=== PATIENT | male | born 1960 | race African-American/Black ===

== ENCOUNTER 2017-01-31 03:32 | Inpatient (IN) | payer MEDICARE, OTHER ==
[2017-01-31] VITALS (7 sets, daily range): BP systolic 154–197; BP diastolic 86–115
[~2017-01-31] VITALS: Ht 162.6 cm; Wt 68.1 kg
[2017-01-31 04:23] LABS: BASO # 0.1 x10^3/uL (0.0-0.2); BASO % 1 % (0-3); EOS % 6 % (0-3); HEMATOCRIT 47.3 % (39.0-53.0); HEMOGLOBIN 15.9 g/dL (13.0-17.5); LYMPH # 2.6 x10^3/uL (1.0-4.8); LYMPH % 41 % (24-48); MEAN CORPUSCULAR HEMOGLOBIN 32 pg (25-35); MEAN CORPUSCULAR HGB CONC 34 g/dL (31-37); MEAN CORPUSCULAR VOLUME 96 fL (79-100); MONO % 11 % (0-9); NEUT % 42 % (31-73); PLATELET COUNT 246 x10^3/uL (140-400); RED BLOOD COUNT 4.95 x10^6/uL (4.30-5.70); RED CELL DISTRIBUTION WIDTH 13.3 % (11.5-14.5); WHITE BLOOD COUNT 6.3 x10^3/uL (4.0-11.0)
[2017-01-31 04:33] LABS: PROTHROMBIN TIME PATIENT 12.8 SEC (11.7-14.0)
--- NOTE | 2017-01-31 04:38 | PHYS DOC ---
Past Medical History Past Medical History: CHF, COPD, Heart Disease Additional Past Surgical Histo: Hernia; left and arm surgery Smoking: Cigarettes Adult General Chief Complaint Chief Complaint: DYSPNEA/RESPIRATOY DISTRESS HPI HPI Patient is a 56 year old male who presents with SOA. He states he has had trouble breathing for 3 days. "I was trying to get through it but I wore out tonight." EMS arrived with patient in respiratory distress and sats in the 80' s. He was placed on CIPAP en route with marked improvement. He has had undocumented fever "felt hot." Cough; non productive and chest pain. He does continue to smoke. He twisted his left ankle one week ago and was seen at then. [facility] as [facility] to ambulance).He arrived with oxygenation at 100% on BIPAP with duoneb in process. Review of Systems Review of Systems Patient answering through the mask: Constitutional: subjective fever but no chills Eyes: Denies change in visual acuity, redness, or eye pain HENT: Denies nasal congestion or sore throat Respiratory: POS cough and shortness of breath Cardiovascular:POS chest pain GI: Denies abdominal pain, nausea, vomiting, bloody stools or diarrhea : Denies dysuria or hematuria Musculoskeletal: Denies back pain. POS left lower leg. Integument: Denies rash or skin lesions Neurologic: Denies headache, focal weakness or sensory changes Endocrine: Denies polyuria or polydipsia Allergies Allergies Allergies Coded Allergies Type Severity Reaction Last Updated Verified No Known Drug Allergies 01/31/17 No Physical Exam Physical Exam Constitutional: Well developed, well nourished, no acute distress, non-toxic appearance. Answering questions through the mask. HENT: Normocephalic, atraumatic, bilateral external ears normal, oropharynx moist, no oral exudates, nose normal. Eyes: PERRLA, EOMI, conjunctiva normal, no discharge. Neck: Normal range of motion, no tenderness, supple, no stridor. Cardiovascular:Heart rate regular rhythm, no murmur Lungs & Thorax: Bilateral breath sounds with coarse rhonchi. Abdomen: Bowel sounds normal, soft, no tenderness, no masses, no pulsatile masses. Skin: Warm, dry, no erythema, no rash. Back: No tenderness, no CVA tenderness. Extremities: No tenderness, no cyanosis, no clubbing, ROM intact. Left lower leg with pain and minimal swelling. Neurologic: Alert and oriented X 3, normal motor function, normal sensory function, no focal deficits noted. Psychologic: Affect normal, judgement normal, mood normal. Current Patient Data Vital Signs Vital Signs Date Time Temp Pulse Resp B/P (MAP) Pulse Ox O2 Delivery O2 Flow Rate FiO2 01/31/17 03:35 100 BiPAP/CPAP 01/31/17 03:32 97.8 101 28 148/106 (120) 97.8 Lab Values Laboratory Tests Test 01/31/17 04:00 White Blood Count 6.3 x10^3/uL (4.0-11.0) Red Blood Count 4.95 x10^6/uL (4.30-5.70) Hemoglobin 15.9 g/dL (13.0-17.5) Hematocrit 47.3 % (39.0-53.0) Mean Corpuscular Volume 96 fL (79-100) Mean Corpuscular Hemoglobin 32 pg (25-35) Mean Corpuscular Hemoglobin Concent 34 g/dL (31-37) Red Cell Distribution Width 13.3 % (11.5-14.5) Platelet Count 246 x10^3/uL (140-400) Neutrophils (%) (Auto) 42 % (31-73) Lymphocytes (%) (Auto) 41 % (24-48) Monocytes (%) (Auto) 11 % (0-9) H Eosinophils (%) (Auto) 6 % (0-3) H Basophils (%) (Auto) 1 % (0-3) Neutrophils # (Auto) 2.6 x10^3uL (1.8-7.7) Lymphocytes # (Auto) 2.6 x10^3/uL (1.0-4.8) Monocytes # (Auto) 0.7 x10^3/uL (0.0-1.1) Eosinophils # (Auto) 0.4 x10^3/uL (0.0-0.7) Basophils # (Auto) 0.1 x10^3/uL (0.0-0.2) Prothrombin Time 12.8 SEC (11.7-14.0) Prothrombin Time INR 1.0 (0.8-1.1) Sodium Level 141 mmol/L (136-145) Potassium Level 3.6 mmol/L (3.5-5.1) Chloride Level 105 mmol/L (98-107) Carbon Dioxide Level 26 mmol/L (21-32) Anion Gap 10 (6-14) Blood Urea Nitrogen 10 mg/dL (8-26) Creatinine 0.9 mg/dL (0.7-1.3) Estimated GFR (Cockcroft-Gault) 104.9 Glucose Level 124 mg/dL (70-99) H Lactic Acid Level 1.2 mmol/L (0.4-2.0) Calcium Level 9.3 mg/dL (8.5-10.1) Magnesium Level 1.7 mg/dL (1.8-2.4) L Total Bilirubin 0.9 mg/dL (0.2-1.0) Direct Bilirubin 0.2 mg/dL (0.0-0.2) Aspartate Amino Transferase (AST) 23 U/L (15-37) Alanine Aminotransferase (ALT) 27 U/L (16-63) Alkaline Phosphatase 79 U/L (46-116) Creatine Kinase 225 U/L (39-308) Creatine Kinase MB (Mass) 1.0 ng/mL (0.0-3.6) Creatine Kinase MB Relative Index 0.4 % (0-4) Troponin I Quantitative < 0.017 ng/mL (0.000-0.055) AL-Fvx-J-Type Natriuretic Peptide 21 pg/mL (0-124) Total Protein 7.8 g/dL (6.4-8.2) Albumin 3.7 g/dL (3.4-5.0) Lipase 150 U/L (73-393) Laboratory Tests 01/31/17 04:00 Laboratory Tests 01/31/17 04:00 EKG EKG EKG interpreted by myself at [address] changes; NO STEMI. Radiology/Procedures Radiology/Procedures CXR interpreted by myself at 0505 AM: flattened diaphragms; no acute infiltrate ; no pneumothorax. US: verbal report at 0510 AM: no DVT Impressions: [facility] [address] [place] [address] IMAGING REPORT Signed PATIENT: MARYANNE WINTER ACCOUNT: [id number] : 1960 LOCATION: [facility] ICU AGE: 56 SEX: M EXAM STATUS: ADM IN ORD. PHYSICIAN: EDER AUSTIN MD REASON: swelling left lower leg PROCEDURE: VENOUS LOWER EXTREMITY LEFT INDICATION: Left leg swelling COMPARISON: None. TECHNIQUE: Grayscale, color and doppler ultrasound images were obtained of the left lower extremity venous vasculature. LEFT: No thrombus identified in the common femoral vein, femoral vein, popliteal vein or visualized calf veins. IMPRESSION: 1. No thrombus identified in deep venous system of the left lower extremity. Electronically signed by: Josiane Hinojosa MD (01/31/2017 5:22 AM) [facility] [place] DICTATED and SIGNED BY: JOSIANE HINOJOSA MD DATE: 01/31/17520 CC: EDER AUSTIN MD; NO PCP; ADI BUSTAMANTE MD ~ Course & Med Decision Making Course & Med Decision Making Met patient upon arrival. No records here. History of CHF and COPD. No rales on exam. Doing well on BIPAP. Patient refuses ABG at this time; he is mentating well and sat 100%. He is on BIPAP: 16/6; rate 16; 30%. He is able to answer questions thru the mask. Solumedrol 125 IV and Rocephin IV (for pulmonary coverage). US ordered of left lower leg due to immobility for one week for sprain. Admit to Dr Bustamante; CVC (patient is hemodynamically stable and mentating well). Differential diagnosis includes but not limited to: Acute myocardial ischemia, heart failure, cardiac tamponade, bronchospasm, pulmonary embolism, pneumothorax , pulmonary infection i.e. bronchitis or pneumonia, upper airway obstruction, anaphylaxis, aspiration, psychogenic, pulmonary contusion, toxidrome, pneumomediastinum, noncardiogenic pulmonary edema or ARDS, COPD, tuberculosis, cystic fibrosis, asthma, high altitude pulmonary edema, valvular dysfunction, cardiac dysrhythmia, stroke, neuromuscular diseases like myasthenia gravis gravis, ALS, Guillain-Sweeney syndrome, metabolic acidosis to include diabetic ketoacidosis, sepsis, and obstructive disorders like massive obesity I have spoken with the patient and/or caregivers. I have explained the patient' s condition, diagnosis and treatment plan based on the information available to me at this time. I have answered the patient's and/or caregiver's questions and addressed any concerns. The patient and/or caregivers have as good an understanding of the patient's diagnosis, condition and treatment plan as can be expected at this point. The patient has been stabilized within the capability of the emergency department. The patient will be transported for further care and management or will be moved to an observation or inpatient service. I have communicated with the staff or medical practitioner taking over this patient's care. I spent approximately 30 minutes working and engaged directly in the patient care providing critical care evaluation this includes but not limited to time spent engaged in work directly related to the individual patients care. I spent time at the bedside, reviewing test results, discussing the case with staff, documenting the medical record and time spent with EMS discussing specific treatment issues when the patient presented and during his evaluation. This includes any discussion and updates with family members and/or patient. Dragon Disclaimer Dragon Disclaimer This electronic medical record was generated, in whole or in part, using a voice recognition dictation system. Departure Departure Impression: Primary Impression: Respiratory failure Additional Impressions: COPD (chronic obstructive pulmonary disease) with acute bronchitis Chest pain Disposition: ADMITTED INPATIENT Admitting Physician: Other (Reusch) Condition: GUARDED Referrals: NO PCP (PCP) Problem Qualifiers Primary Impression: Respiratory failure Chronicity: acute Respiratory failure complication: unspecified whether with hypoxia or hypercapnia Qualified Codes: J96.00 - Acute respiratory failure, unspecified whether with hypoxia or hypercapnia Additional Impressions: Chest pain Chest pain type: unspecified Qualified Codes: R07.9 - Chest pain, unspecified EDER AUSTIN MD Jan 31, 2017 04:38
[2017-01-31 04:44] LABS: CALCIUM 9.3 mg/dL (8.5-10.1); CREATININE 0.9 mg/dL (0.7-1.3); GFR 104.9; POTASSIUM 3.6 mmol/L (3.5-5.1)
[2017-01-31] MEDS ORDERED: methylPREDNISolone SOD SUCC PF 125 MG/2 ML VIAL. IV ONE (04:45)
[2017-01-31 04:48] LABS: ALBUMIN 3.7 g/dL (3.4-5.0); DIRECT BILIRUBIN 0.2 mg/dL (0.0-0.2); MAGNESIUM 1.7 mg/dL (1.8-2.4); TOTAL BILIRUBIN 0.9 mg/dL (0.2-1.0); TOTAL PROTEIN 7.8 g/dL (6.4-8.2)
[2017-01-31] MEDS ORDERED: ONDANSETRON PF 4 MG/2 ML VIAL. IV PRN ×2 (05:00→10:00)
--- NOTE | 2017-01-31 05:26 | RAD ---
INDICATION: Left leg swelling COMPARISON: None. TECHNIQUE: Grayscale, color and doppler ultrasound images were obtained of the left lower extremity venous vasculature. LEFT: No thrombus identified in the common femoral vein, femoral vein, popliteal vein or visualized calf veins. IMPRESSION: 1. No thrombus identified in deep venous system of the left lower extremity. Electronically signed by: Sloan Norwood MD (01/31/2017 5:22 AM) [facility]
[2017-01-31] MEDS ORDERED: INFLUENZA VAX SCREEN BY RX. MC ONE (06:30)
--- NOTE | 2017-01-31 07:05 | EKG ---
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
[2017-01-31] MEDS: IPRATRPIUM/ALBUTEROL 0.5/2.5MG 3 ML NEBU. NEB SCH ×4 (07:26→19:38)
[2017-01-31 08:19] LABS: HCO3 ABG 26 mmol/L (21-28); PCO2 ABG 46 mmHg (35-46); PH ABG 7.36 (7.35-7.45); PO2 ABG 95 mmHg (75-108); SAT O2 ABG 97 % (92-99)
[2017-01-31 08:20] LABS: FIO2 ABG 30
[2017-01-31] MEDS: BUDESONIDE 0.5 MG/2 ML NEBU. NEB SCH ×2 (08:22→19:38)
[2017-01-31] MEDS ORDERED: FLU VACC QS2017-18 (36MOS+)/PF 0.5 ML SYRINGE. VAX IM ONE (09:00)
[2017-01-31] MEDS ORDERED: guaiFENesin DM 200MG/20MG 10 ML SYRUP PO PRN (10:00)
[2017-01-31] MEDS ORDERED: NICOTINE POLACRILEX 2MG GUM PACKAGE of 12. BC PRN (11:00)
[2017-01-31] MEDS ORDERED: NICOTINE 21MG PATCH. TD SCH (11:00)
--- NOTE | 2017-01-31 11:02 | PDOC1 ---
History and Physical Date of Admission Date of Admission DATE: 01/31/17 TIME: 10:55 Identification/Chief Complaint Chief Complaint SOA, cough Problems: Source Source: Caregiver, Chart review, Patient History of Present Illness History of Present Illness 56 y.o AA male follows at OR, half a pack a day smoker for many yrs, still smoking, admitted with low sats at ER needing BIPAP, had similar hx in [facility] needing also bIPAP. Refused ABG at ER level, CXR no acute inflitrates, tight, wheezy but feels better, on IV steroids. Coughs, dry in attempts of inhalation during my auscultation, Denies recent travel or sick contacts, but RAN out of his inhalers x 5 days, Usually on spiriva, symbicort and advair at home, Insurance pays for his meds so cost not an issue, Claims has appt this OR. heAVY COUNSELLING ABout keeping with his meds to avoid exacerbations. CLaims SOA at short distances - never on O2. No known Cardiac hx Past Medical History Pulmonary: Bronchitis, COPD Past Surgical History Past Surgical History: No pertinent history Family History Family History: No Significant Social History Smoke: <1 pack per day ALCOHOL: none Drugs: None Current Problem List Problem List Problems Medical Problems: (1) Chest pain Status: Acute (2) COPD (chronic obstructive pulmonary disease) with acute bronchitis Status: Acute (3) Respiratory failure Status: Acute Problems: Current Medications Current Medications Current Medications Methylprednisolone Sodium Succinate (SOLU-Medrol 125MG VIAL) 125 mg 1X ONCE IV Last administered on 01/31/17 05:20; Start 01/31/17 at 04:45; Stop 01/31/17 at 04:46; Status DC Ceftriaxone Sodium 50 ml @ 100 mls/hr 1X ONCE IV Last administered on 05:22; Start 01/31/17 at 04:45; Stop 01/31/17 at 05:14; Status DC Ondansetron HCl (Zofran) 4 mg PRN Q8HRS PRN IV NAUSEA/VOMITING; Start 01/31/17 at 05:00; Stop 01/31/17 at 09:54; Status DC Albuterol/ Ipratropium (Duoneb) 3 ml RTQID NEB Last administered on 01/31/17 07:26; Start 01/31/17 at 08:00; Stop 02/01/17 at 07:59 Ceftriaxone Sodium 1 gm/ Sodium Chloride 50 ml @ 100 mls/hr Q24H IV ; Start at 05:00 Methylprednisolone Sodium Succinate (SOLU-Medrol 40MG VIAL) 40 mg Q8HRS IV ; Start 01/31/17 at 14:00 Info (Do NOT chart on this placeholder) 1 each 1X ONCE MC ; Start 01/31/17 at 06:30; Stop 01/31/17 at 06:31; Status UNV Influenza Virus Vaccine Quadrival (Fluarix Quad [id number] Syringe) 0.5 ml ONCE ONCE VAX IM ; Start 01/31/17 at 09:00; Stop 01/31/17 at 09:01; Status DC Budesonide (Pulmicort) 0.5 mg RTBID NEB Last administered on 01/31/17t 08:22; Start 01/31/17 at 08:00 Ondansetron HCl (Zofran) 4 mg PRN Q6HRS PRN IV NAUSEA/VOMITING; Start 01/31/17 at 10:00; Stop 02/01/17 at 09:59 Acetaminophen (Tylenol) 500 mg PRN Q6HRS PRN PO MILD PAIN / TEMP; Start at 10:00 Clonidine HCl (Catapres) 0.1 mg PRN Q1HR PRN PO HYPERTENSION, SEE COMMENTS; Start 01/31/17 at 10:00 Guaifenesin (Robitussin Dm) 10 ml PRN Q6HRS PRN PO COUGH; Start 01/31/17 at 10: 00 Allergies Allergies: Coded Allergies: No Known Drug Allergies (Unverified , 01/31/17) ROS General: No: Chills, Night Sweats, Fatigue, Malaise, Appetite, Other PSYCHOLOGICAL ROS: No: Anxiety, Behavioral Disorder, Concentration difficultie , Decreased libido, Depression, Disorientation, Hallucinations, Hostility, Irritablity, Memory difficulties, Mood Swings, Obsessive thoughts, Physical abuse, Sexual abuse, Sleep disturbances, Suicidal ideation, Other Eyes: No Blurry vision, No Decreased vision, No Double vision, No Dry eyes, No Excessive tearing, No Eye Pain, No Itchy Eyes, No Loss of vision, No Photophobia , No Scotomata, No Uses contacts, No Uses glasses, No Other HEENT: No: Heacaches, Visual Changes, Hearing change, Nasal congestion, Nasal discharge, Oral lesions, Sinus pain, Sore Throat, Epistaxis, Sneezing, Snoring, Tinnitus, Vertigo, Vocal changes, Other ALLERGY AND IMMUNOLOGY: No: Hives, Insect Bite Sensitivity, Itchy/Watery Eyes, Nasal Congestion, Post Nasal Drip, Seasonal Allergies, Other Hematological and Lymphatic: No: Bleeding Problems, Blood Clots, Blood Transfusions, Brusing, Night Sweats, Pallor, Swollen Lymph Nodes, Other ENDOCRINE: No: Breast Changes, Galactorrhea, Hair Pattern Changes, Hot Flashes , Malaise/lethargy, Mood Swings, Palpitations, Polydipsia/polyuria, Skin Changes , Temperature Intolerance, Unexpected Weight Changes, Other Breast: No New/Changing Breast Lumps, No Nipple changes, No Nipple discharge, No Other Respiratory: YES: Cough, Shortness of breath, SOB with excertion Gastrointestinal: No Nausea, No Vomiting, No Abdominal Pain, No Diarrhea, No Constipation, No Melena, No Hematochezia, No Other Genitourinary: No Dysuria, No Frequency, No Incontinence, No Hematuria, No Retention, No Discharge, No Urgency, No Pain, No Flank Pain, No Other, No , No , No , No , No , No , No Musculoskeletal: No Gait Disturbance, No Joint Pain, No Joint Stiffness, No Joint Swelling, No Muscle Pain, No Muscular Weakness, No Pain In:, No Swelling In:, No Other Neurological: No Behavorial Changes, No Bowel/Bladder ControlChng, No Confusion , No Dizziness, No Gait Disturbance, No Headaches, No Impaired Coord/balance, No Memory Loss, No Numbness/Tingling, No Seizures, No Speech Problems, No Tremors, No Visual Changes, No Weakness, No Other Skin: No Dry Skin, No Eczema, No Hair Changes, No Lumps, No Mole Changes, No Mottling, No Nail Changes, No Pruritus, No Rash, No Skin Lesion Changes, No Other, No Acne Physical Exam General: Alert, Oriented X3, Cooperative, No acute distress HEENT: Atraumatic, PERRLA Lungs: Normal air movement, Other (tight, dec BS, wheezy) Cardiovascular: S1, S2 Abdomen: Normal bowel sounds, Soft, No tenderness, No hepatosplenomegaly, No masses Male Genitals Exam: normal genitalia, normal prostate Rectal Exam: not examined PELVIC: Nml ext genitalia Extremities: No clubbing, No cyanosis, No edema, Normal pulses, No tenderness/ swelling Skin: No rashes, No breakdown, No significant lesion Neuro: Normal gait, Normal speech, Strength at 5/5 X4 ext, Normal tone, Sensation intact, Cranial nerves 3-12 NL, Reflexes 2+ Psych/Mental Status: Mental status NL, Mood NL Vitals Vitals Vital Signs Date Time Temp Pulse Resp B/P (MAP) Pulse Ox O2 Delivery O2 Flow Rate FiO2 01/31/17 07:58 30.0 01/31/17 07:58 Room Air 01/31/17 07:26 99 01/31/17 07:15 84 16 154/95 (114) 01/31/17 06:00 97.5 97.5 Labs Labs Laboratory Tests Test 01/31/17 04:00 01/31/17 07:15 01/31/17 07:40 01/31/17 07:46 White Blood Count 6.3 x10^3/uL (4.0-11.0) Red Blood Count 4.95 x10^6/uL (4.30-5.70) Hemoglobin 15.9 g/dL (13.0-17.5) Hematocrit 47.3 % (39.0-53.0) Mean Corpuscular Volume 96 fL (79-100) Mean Corpuscular Hemoglobin 32 pg (25-35) Mean Corpuscular Hemoglobin Concent 34 g/dL (31-37) Red Cell Distribution Width 13.3 % (11.5-14.5) Platelet Count 246 x10^3/uL (140-400) Neutrophils (%) (Auto) 42 % (31-73) Lymphocytes (%) (Auto) 41 % (24-48) Monocytes (%) (Auto) 11 % (0-9) Eosinophils (%) (Auto) 6 % (0-3) Basophils (%) (Auto) 1 % (0-3) Neutrophils # (Auto) 2.6 x10^3uL (1.8-7.7) Lymphocytes # (Auto) 2.6 x10^3/uL (1.0-4.8) Monocytes # (Auto) 0.7 x10^3/uL (0.0-1.1) Eosinophils # (Auto) 0.4 x10^3/uL (0.0-0.7) Basophils # (Auto) 0.1 x10^3/uL (0.0-0.2) Prothrombin Time 12.8 SEC (11.7-14.0) Prothromb Time International Ratio 1.0 (0.8-1.1) Sodium Level 141 mmol/L (136-145) Potassium Level 3.6 mmol/L (3.5-5.1) Chloride Level 105 mmol/L (98-107) Carbon Dioxide Level 26 mmol/L (21-32) Anion Gap 10 (6-14) Blood Urea Nitrogen 10 mg/dL (8-26) Creatinine 0.9 mg/dL (0.7-1.3) Estimated GFR (Cockcroft-Gault) 104.9 Glucose Level 124 mg/dL (70-99) Lactic Acid Level 1.2 mmol/L (0.4-2.0) Calcium Level 9.3 mg/dL (8.5-10.1) Magnesium Level 1.7 mg/dL (1.8-2.4) Total Bilirubin 0.9 mg/dL (0.2-1.0) Direct Bilirubin 0.2 mg/dL (0.0-0.2) Aspartate Amino Transf (AST/SGOT) 23 U/L (15-37) Alanine Aminotransferase (ALT/SGPT) 27 U/L (16-63) Alkaline Phosphatase 79 U/L (46-116) Creatine Kinase 225 U/L (39-308) Creatine Kinase MB (Mass) 1.0 ng/mL (0.0-3.6) Creatine Kinase MB Relative Index 0.4 % (0-4) Troponin I Quantitative < 0.017 ng/mL (0.000-0.055) < 0.017 ng/mL (0.000-0.055) KU-Bxc-B-Type Natriuretic Peptide 21 pg/mL (0-124) Total Protein 7.8 g/dL (6.4-8.2) Albumin 3.7 g/dL (3.4-5.0) Lipase 150 U/L (73-393) O2 Saturation 97 % (92-99) Arterial Blood pH 7.36 (7.35-7.45) Arterial Blood pCO2 at Patient Temp 46 mmHg (35-46) Arterial Blood pO2 at Patient Temp 95 mmHg (75-108) Arterial Blood HCO3 26 mmol/L (21-28) Arterial Blood Base Excess -1 mmol/L (-3-3) FiO2 30 Glucose (Fingerstick) 125 mg/dL (70-99) Laboratory Tests Test 01/31/17 04:00 01/31/17 07:15 01/31/17 07:40 01/31/17 07:46 White Blood Count 6.3 x10^3/uL (4.0-11.0) Red Blood Count 4.95 x10^6/uL (4.30-5.70) Hemoglobin 15.9 g/dL (13.0-17.5) Hematocrit 47.3 % (39.0-53.0) Mean Corpuscular Volume 96 fL (79-100) Mean Corpuscular Hemoglobin 32 pg (25-35) Mean Corpuscular Hemoglobin Concent 34 g/dL (31-37) Red Cell Distribution Width 13.3 % (11.5-14.5) Platelet Count 246 x10^3/uL (140-400) Neutrophils (%) (Auto) 42 % (31-73) Lymphocytes (%) (Auto) 41 % (24-48) Monocytes (%) (Auto) 11 % (0-9) Eosinophils (%) (Auto) 6 % (0-3) Basophils (%) (Auto) 1 % (0-3) Neutrophils # (Auto) 2.6 x10^3uL (1.8-7.7) Lymphocytes # (Auto) 2.6 x10^3/uL (1.0-4.8) Monocytes # (Auto) 0.7 x10^3/uL (0.0-1.1) Eosinophils # (Auto) 0.4 x10^3/uL (0.0-0.7) Basophils # (Auto) 0.1 x10^3/uL (0.0-0.2) Prothrombin Time 12.8 SEC (11.7-14.0) Prothromb Time International Ratio 1.0 (0.8-1.1) Sodium Level 141 mmol/L (136-145) Potassium Level 3.6 mmol/L (3.5-5.1) Chloride Level 105 mmol/L (98-107) Carbon Dioxide Level 26 mmol/L (21-32) Anion Gap 10 (6-14) Blood Urea Nitrogen 10 mg/dL (8-26) Creatinine 0.9 mg/dL (0.7-1.3) Estimated GFR (Cockcroft-Gault) 104.9 Glucose Level 124 mg/dL (70-99) Lactic Acid Level 1.2 mmol/L (0.4-2.0) Calcium Level 9.3 mg/dL (8.5-10.1) Magnesium Level 1.7 mg/dL (1.8-2.4) Total Bilirubin 0.9 mg/dL (0.2-1.0) Direct Bilirubin 0.2 mg/dL (0.0-0.2) Aspartate Amino Transf (AST/SGOT) 23 U/L (15-37) Alanine Aminotransferase (ALT/SGPT) 27 U/L (16-63) Alkaline Phosphatase 79 U/L (46-116) Creatine Kinase 225 U/L (39-308) Creatine Kinase MB (Mass) 1.0 ng/mL (0.0-3.6) Creatine Kinase MB Relative Index 0.4 % (0-4) Troponin I Quantitative < 0.017 ng/mL (0.000-0.055) < 0.017 ng/mL (0.000-0.055) AJ-Ndj-C-Type Natriuretic Peptide 21 pg/mL (0-124) Total Protein 7.8 g/dL (6.4-8.2) Albumin 3.7 g/dL (3.4-5.0) Lipase 150 U/L (73-393) O2 Saturation 97 % (92-99) Arterial Blood pH 7.36 (7.35-7.45) Arterial Blood pCO2 at Patient Temp 46 mmHg (35-46) Arterial Blood pO2 at Patient Temp 95 mmHg (75-108) Arterial Blood HCO3 26 mmol/L (21-28) Arterial Blood Base Excess -1 mmol/L (-3-3) FiO2 30 Glucose (Fingerstick) 125 mg/dL (70-99) VTE Prophylaxis Ordered VTE Prophylaxis Devices: Yes VTE Pharmacological Prophylaxi: Yes Assessment/Plan Assessment/Plan 1. Acute hypoxic respi failure, COPD exacerb, acute bronchitis - no definite PNA seen on CXR - started on empiric rocpehin - Add RTC maryitussin, nebs, 2. SMOker, significant -nicotine gum and patch 3. SIRS POA no sepsis PLAN: OK to t.o ICU Nebs PUlmo consult COnt empiric abx COnt IV steroids - might be able to shift PO soon 6 MW Likely dc in 48 hrs Ok reg diet Dw GOVERNMENT INSTRUCTOR TAURUS Ashford MD Jan 31, 2017 11:02
[2017-01-31] MEDS: guaiFENesin DM 200MG/20MG 10 ML SYRUP PO SCH ×3 (11:45→20:31)
[2017-01-31] MEDS: LABETALOL 20 MG/4 ML DISP.SYRIN. IVP PRN ×3 (11:45→23:11)
--- NOTE | 2017-01-31 12:05 | PDOC ---
PULMONARY PROGRESS NOTES Vitals Vital Signs Date Time Temp Pulse Resp B/P (MAP) Pulse Ox O2 Delivery O2 Flow Rate FiO2 01/31/17 11:49 30.0 01/31/17 11:45 122 168/115 01/31/17 11:25 100 Room Air 01/31/17 11:25 35 01/31/17 06:00 97.5 97.5 Cardiovascular: S1, S2 Labs Laboratory Tests Test 01/31/17 04:00 01/31/17 07:15 01/31/17 07:40 01/31/17 07:46 White Blood Count 6.3 x10^3/uL (4.0-11.0) Red Blood Count 4.95 x10^6/uL (4.30-5.70) Hemoglobin 15.9 g/dL (13.0-17.5) Hematocrit 47.3 % (39.0-53.0) Mean Corpuscular Volume 96 fL (79-100) Mean Corpuscular Hemoglobin 32 pg (25-35) Mean Corpuscular Hemoglobin Concent 34 g/dL (31-37) Red Cell Distribution Width 13.3 % (11.5-14.5) Platelet Count 246 x10^3/uL (140-400) Neutrophils (%) (Auto) 42 % (31-73) Lymphocytes (%) (Auto) 41 % (24-48) Monocytes (%) (Auto) 11 % (0-9) Eosinophils (%) (Auto) 6 % (0-3) Basophils (%) (Auto) 1 % (0-3) Neutrophils # (Auto) 2.6 x10^3uL (1.8-7.7) Lymphocytes # (Auto) 2.6 x10^3/uL (1.0-4.8) Monocytes # (Auto) 0.7 x10^3/uL (0.0-1.1) Eosinophils # (Auto) 0.4 x10^3/uL (0.0-0.7) Basophils # (Auto) 0.1 x10^3/uL (0.0-0.2) Prothrombin Time 12.8 SEC (11.7-14.0) Prothromb Time International Ratio 1.0 (0.8-1.1) Sodium Level 141 mmol/L (136-145) Potassium Level 3.6 mmol/L (3.5-5.1) Chloride Level 105 mmol/L (98-107) Carbon Dioxide Level 26 mmol/L (21-32) Anion Gap 10 (6-14) Blood Urea Nitrogen 10 mg/dL (8-26) Creatinine 0.9 mg/dL (0.7-1.3) Estimated GFR (Cockcroft-Gault) 104.9 Glucose Level 124 mg/dL (70-99) Lactic Acid Level 1.2 mmol/L (0.4-2.0) Calcium Level 9.3 mg/dL (8.5-10.1) Magnesium Level 1.7 mg/dL (1.8-2.4) Total Bilirubin 0.9 mg/dL (0.2-1.0) Direct Bilirubin 0.2 mg/dL (0.0-0.2) Aspartate Amino Transf (AST/SGOT) 23 U/L (15-37) Alanine Aminotransferase (ALT/SGPT) 27 U/L (16-63) Alkaline Phosphatase 79 U/L (46-116) Creatine Kinase 225 U/L (39-308) Creatine Kinase MB (Mass) 1.0 ng/mL (0.0-3.6) Creatine Kinase MB Relative Index 0.4 % (0-4) Troponin I Quantitative < 0.017 ng/mL (0.000-0.055) < 0.017 ng/mL (0.000-0.055) JT-Cdc-F-Type Natriuretic Peptide 21 pg/mL (0-124) Total Protein 7.8 g/dL (6.4-8.2) Albumin 3.7 g/dL (3.4-5.0) Lipase 150 U/L (73-393) O2 Saturation 97 % (92-99) Arterial Blood pH 7.36 (7.35-7.45) Arterial Blood pCO2 at Patient Temp 46 mmHg (35-46) Arterial Blood pO2 at Patient Temp 95 mmHg (75-108) Arterial Blood HCO3 26 mmol/L (21-28) Arterial Blood Base Excess -1 mmol/L (-3-3) FiO2 30 Glucose (Fingerstick) 125 mg/dL (70-99) Test 01/31/17 10:20 Troponin I Quantitative < 0.017 ng/mL (0.000-0.055) Laboratory Tests Test 01/31/17 04:00 01/31/17 07:15 01/31/17 07:40 01/31/17 07:46 White Blood Count 6.3 x10^3/uL (4.0-11.0) Red Blood Count 4.95 x10^6/uL (4.30-5.70) Hemoglobin 15.9 g/dL (13.0-17.5) Hematocrit 47.3 % (39.0-53.0) Mean Corpuscular Volume 96 fL (79-100) Mean Corpuscular Hemoglobin 32 pg (25-35) Mean Corpuscular Hemoglobin Concent 34 g/dL (31-37) Red Cell Distribution Width 13.3 % (11.5-14.5) Platelet Count 246 x10^3/uL (140-400) Neutrophils (%) (Auto) 42 % (31-73) Lymphocytes (%) (Auto) 41 % (24-48) Monocytes (%) (Auto) 11 % (0-9) Eosinophils (%) (Auto) 6 % (0-3) Basophils (%) (Auto) 1 % (0-3) Neutrophils # (Auto) 2.6 x10^3uL (1.8-7.7) Lymphocytes # (Auto) 2.6 x10^3/uL (1.0-4.8) Monocytes # (Auto) 0.7 x10^3/uL (0.0-1.1) Eosinophils # (Auto) 0.4 x10^3/uL (0.0-0.7) Basophils # (Auto) 0.1 x10^3/uL (0.0-0.2) Prothrombin Time 12.8 SEC (11.7-14.0) Prothromb Time International Ratio 1.0 (0.8-1.1) Sodium Level 141 mmol/L (136-145) Potassium Level 3.6 mmol/L (3.5-5.1) Chloride Level 105 mmol/L (98-107) Carbon Dioxide Level 26 mmol/L (21-32) Anion Gap 10 (6-14) Blood Urea Nitrogen 10 mg/dL (8-26) Creatinine 0.9 mg/dL (0.7-1.3) Estimated GFR (Cockcroft-Gault) 104.9 Glucose Level 124 mg/dL (70-99) Lactic Acid Level 1.2 mmol/L (0.4-2.0) Calcium Level 9.3 mg/dL (8.5-10.1) Magnesium Level 1.7 mg/dL (1.8-2.4) Total Bilirubin 0.9 mg/dL (0.2-1.0) Direct Bilirubin 0.2 mg/dL (0.0-0.2) Aspartate Amino Transf (AST/SGOT) 23 U/L (15-37) Alanine Aminotransferase (ALT/SGPT) 27 U/L (16-63) Alkaline Phosphatase 79 U/L (46-116) Creatine Kinase 225 U/L (39-308) Creatine Kinase MB (Mass) 1.0 ng/mL (0.0-3.6) Creatine Kinase MB Relative Index 0.4 % (0-4) Troponin I Quantitative < 0.017 ng/mL (0.000-0.055) < 0.017 ng/mL (0.000-0.055) YD-Eeh-Z-Type Natriuretic Peptide 21 pg/mL (0-124) Total Protein 7.8 g/dL (6.4-8.2) Albumin 3.7 g/dL (3.4-5.0) Lipase 150 U/L (73-393) O2 Saturation 97 % (92-99) Arterial Blood pH 7.36 (7.35-7.45) Arterial Blood pCO2 at Patient Temp 46 mmHg (35-46) Arterial Blood pO2 at Patient Temp 95 mmHg (75-108) Arterial Blood HCO3 26 mmol/L (21-28) Arterial Blood Base Excess -1 mmol/L (-3-3) FiO2 30 Glucose (Fingerstick) 125 mg/dL (70-99) Test 01/31/17 10:20 Troponin I Quantitative < 0.017 ng/mL (0.000-0.055) Impression . full consult dictated AECOPD resp Failure sec to above see orders Thanks WILLIAM LIVE MD Jan 31, 2017 12:05
[2017-01-31] MEDS: DOXYCYCLINE HYCLATE 100 MG TABLET PO SCH ×2 (12:37→20:30)
[2017-01-31] MEDS: methylPREDNISolone SOD SUCC PF 40 MG/ML VIAL. IV SCH ×2 (14:01→21:41)
[2017-01-31] MEDS: ACETAMINOPHEN 500 MG TABLET PO PRN ×2 (16:14→20:30)
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
[2017-01-31] MEDS ORDERED: IBUPROFEN 600 MG TABLET. PO PRN (21:30)
[2017-01-31] MEDS: cloNIDine HCL 0.1 MG TABLET PO PRN (23:11)
[2017-02-01 00:50] VITALS: BP 176/102
[2017-02-01] MEDS: LABETALOL 20 MG/4 ML DISP.SYRIN. IVP PRN (01:19)
[2017-02-01 02:53] VITALS: BP 154/87
[2017-02-01] MEDS: cloNIDine HCL 0.1 MG TABLET PO PRN (02:53)
[2017-02-01] MEDS: ACETAMINOPHEN 500 MG TABLET PO PRN (02:53)
[2017-02-01] MEDS: BUDESONIDE 0.5 MG/2 ML NEBU. NEB SCH (07:42)
[2017-02-01 08:00] VITALS: BP 154/90
[2017-02-01] MEDS ORDERED: predniSONE 20 MG TABLET PO SCH (09:00)
[2017-02-01] MEDS ORDERED: BUDE10.2 IH (09:03)
[2017-02-01] MEDS ORDERED: TIOT18CA IH (09:03)
[2017-02-01] MEDS ORDERED: PRED20TA PO (09:03)
[2017-02-01] MEDS ORDERED: DOXY100C2 PO (09:03)
--- NOTE | 2017-02-01 09:06 | PDOC3 ---
Discharge Summary Visit Information Date of Admission: Jan 31, 2017 Date of Discharge: Feb 01, 2017 Admitting Diagnosis Comment: 1. Acute hypoxic respi failure, COPD exacerb, acute bronchitis - no definite PNA seen on CXR - started on empiric rocpehin - Add RTC robitussin, nebs, 2. SMOker, significant -nicotine gum and patch 3. SIRS POA no sepsis Final Diagnosis Problems Medical Problems: (1) Chest pain Status: Acute (2) COPD (chronic obstructive pulmonary disease) with acute bronchitis Status: Acute (3) Respiratory failure Status: Acute Brief Hospital Course Allergies Allergies Coded Allergies Type Severity Reaction Last Updated Verified No Known Drug Allergies 01/31/17 No Vital Signs Vital Signs Date Time Temp Pulse Resp B/P (MAP) Pulse Ox O2 Delivery O2 Flow Rate FiO2 02/01/17 02:53 98.2 108 24 154/87 (109) 97 Room Air 98.2 01/31/17 15:40 30.0 Lab Results Laboratory Tests Test 01/31/17 04:00 01/31/17 06:00 01/31/17 07:15 01/31/17 07:40 White Blood Count 6.3 x10^3/uL (4.0-11.0) Red Blood Count 4.95 x10^6/uL (4.30-5.70) Hemoglobin 15.9 g/dL (13.0-17.5) Hematocrit 47.3 % (39.0-53.0) Mean Corpuscular Volume 96 fL (79-100) Mean Corpuscular Hemoglobin 32 pg (25-35) Mean Corpuscular Hemoglobin Concent 34 g/dL (31-37) Red Cell Distribution Width 13.3 % (11.5-14.5) Platelet Count 246 x10^3/uL (140-400) Neutrophils (%) (Auto) 42 % (31-73) Lymphocytes (%) (Auto) 41 % (24-48) Monocytes (%) (Auto) 11 % (0-9) Eosinophils (%) (Auto) 6 % (0-3) Basophils (%) (Auto) 1 % (0-3) Neutrophils # (Auto) 2.6 x10^3uL (1.8-7.7) Lymphocytes # (Auto) 2.6 x10^3/uL (1.0-4.8) Monocytes # (Auto) 0.7 x10^3/uL (0.0-1.1) Eosinophils # (Auto) 0.4 x10^3/uL (0.0-0.7) Basophils # (Auto) 0.1 x10^3/uL (0.0-0.2) Prothrombin Time 12.8 SEC (11.7-14.0) Prothromb Time International Ratio 1.0 (0.8-1.1) Sodium Level 141 mmol/L (136-145) Potassium Level 3.6 mmol/L (3.5-5.1) Chloride Level 105 mmol/L (98-107) Carbon Dioxide Level 26 mmol/L (21-32) Anion Gap 10 (6-14) Blood Urea Nitrogen 10 mg/dL (8-26) Creatinine 0.9 mg/dL (0.7-1.3) Estimated GFR (Cockcroft-Gault) 104.9 Glucose Level 124 mg/dL (70-99) Lactic Acid Level 1.2 mmol/L (0.4-2.0) Calcium Level 9.3 mg/dL (8.5-10.1) Magnesium Level 1.7 mg/dL (1.8-2.4) Total Bilirubin 0.9 mg/dL (0.2-1.0) Direct Bilirubin 0.2 mg/dL (0.0-0.2) Aspartate Amino Transf (AST/SGOT) 23 U/L (15-37) Alanine Aminotransferase (ALT/SGPT) 27 U/L (16-63) Alkaline Phosphatase 79 U/L (46-116) Creatine Kinase 225 U/L (39-308) Creatine Kinase MB (Mass) 1.0 ng/mL (0.0-3.6) Creatine Kinase MB Relative Index 0.4 % (0-4) Troponin I Quantitative < 0.017 ng/mL (0.000-0.055) < 0.017 ng/mL (0.000-0.055) WI-Zuq-J-Type Natriuretic Peptide 21 pg/mL (0-124) Total Protein 7.8 g/dL (6.4-8.2) Albumin 3.7 g/dL (3.4-5.0) Lipase 150 U/L (73-393) Nasal Screen MRSA (PCR) Negative (Negative) O2 Saturation 97 % (92-99) Arterial Blood pH 7.36 (7.35-7.45) Arterial Blood pCO2 at Patient Temp 46 mmHg (35-46) Arterial Blood pO2 at Patient Temp 95 mmHg (75-108) Arterial Blood HCO3 26 mmol/L (21-28) Arterial Blood Base Excess -1 mmol/L (-3-3) FiO2 30 Test 01/31/17 07:46 01/31/17 10:20 Glucose (Fingerstick) 125 mg/dL (70-99) Troponin I Quantitative < 0.017 ng/mL (0.000-0.055) Laboratory Tests Test 01/31/17 10:20 Troponin I Quantitative < 0.017 ng/mL (0.000-0.055) Brief Hospital Course Mr. Klein is a 56 old AA male who still smokes, admitted for COPD exacerb, RAn out of his inhalers only for few days, Follows at [place], NO prob with med cost , good insurance, no PNA on CXR, [place] managed with pulmo, PO doxy, pred and inhalers,. 6 MW prior to dc today, Stable for home. ff up [place] aurea. Seen and examined Discharge Information Condition at Discharge: Improved, Stable Disposition/Orders: D/C to Home TAURUS SMITH MD Feb 01, 2017 09:06
--- NOTE | 2017-02-01 10:00 | PDOC ---
PULMONARY PROGRESS NOTES Vitals Vital Signs Date Time Temp Pulse Resp B/P (MAP) Pulse Ox O2 Delivery O2 Flow Rate FiO2 02/01/17 08:00 Room Air 02/01/17 08:00 97.7 97 24 154/90 (111) 98 97.7 01/31/17 15:40 30.0 Cardiovascular: S1, S2 Labs Laboratory Tests Test 01/31/17 04:00 01/31/17 06:00 01/31/17 07:15 01/31/17 07:40 White Blood Count 6.3 x10^3/uL (4.0-11.0) Red Blood Count 4.95 x10^6/uL (4.30-5.70) Hemoglobin 15.9 g/dL (13.0-17.5) Hematocrit 47.3 % (39.0-53.0) Mean Corpuscular Volume 96 fL (79-100) Mean Corpuscular Hemoglobin 32 pg (25-35) Mean Corpuscular Hemoglobin Concent 34 g/dL (31-37) Red Cell Distribution Width 13.3 % (11.5-14.5) Platelet Count 246 x10^3/uL (140-400) Neutrophils (%) (Auto) 42 % (31-73) Lymphocytes (%) (Auto) 41 % (24-48) Monocytes (%) (Auto) 11 % (0-9) Eosinophils (%) (Auto) 6 % (0-3) Basophils (%) (Auto) 1 % (0-3) Neutrophils # (Auto) 2.6 x10^3uL (1.8-7.7) Lymphocytes # (Auto) 2.6 x10^3/uL (1.0-4.8) Monocytes # (Auto) 0.7 x10^3/uL (0.0-1.1) Eosinophils # (Auto) 0.4 x10^3/uL (0.0-0.7) Basophils # (Auto) 0.1 x10^3/uL (0.0-0.2) Prothrombin Time 12.8 SEC (11.7-14.0) Prothromb Time International Ratio 1.0 (0.8-1.1) Sodium Level 141 mmol/L (136-145) Potassium Level 3.6 mmol/L (3.5-5.1) Chloride Level 105 mmol/L (98-107) Carbon Dioxide Level 26 mmol/L (21-32) Anion Gap 10 (6-14) Blood Urea Nitrogen 10 mg/dL (8-26) Creatinine 0.9 mg/dL (0.7-1.3) Estimated GFR (Cockcroft-Gault) 104.9 Glucose Level 124 mg/dL (70-99) Lactic Acid Level 1.2 mmol/L (0.4-2.0) Calcium Level 9.3 mg/dL (8.5-10.1) Magnesium Level 1.7 mg/dL (1.8-2.4) Total Bilirubin 0.9 mg/dL (0.2-1.0) Direct Bilirubin 0.2 mg/dL (0.0-0.2) Aspartate Amino Transf (AST/SGOT) 23 U/L (15-37) Alanine Aminotransferase (ALT/SGPT) 27 U/L (16-63) Alkaline Phosphatase 79 U/L (46-116) Creatine Kinase 225 U/L (39-308) Creatine Kinase MB (Mass) 1.0 ng/mL (0.0-3.6) Creatine Kinase MB Relative Index 0.4 % (0-4) Troponin I Quantitative < 0.017 ng/mL (0.000-0.055) < 0.017 ng/mL (0.000-0.055) LK-Ugd-F-Type Natriuretic Peptide 21 pg/mL (0-124) Total Protein 7.8 g/dL (6.4-8.2) Albumin 3.7 g/dL (3.4-5.0) Lipase 150 U/L (73-393) Nasal Screen MRSA (PCR) Negative (Negative) O2 Saturation 97 % (92-99) Arterial Blood pH 7.36 (7.35-7.45) Arterial Blood pCO2 at Patient Temp 46 mmHg (35-46) Arterial Blood pO2 at Patient Temp 95 mmHg (75-108) Arterial Blood HCO3 26 mmol/L (21-28) Arterial Blood Base Excess -1 mmol/L (-3-3) FiO2 30 Test 01/31/17 07:46 01/31/17 10:20 Glucose (Fingerstick) 125 mg/dL (70-99) Troponin I Quantitative < 0.017 ng/mL (0.000-0.055) Laboratory Tests Test 01/31/17 10:20 Troponin I Quantitative < 0.017 ng/mL (0.000-0.055) Medications Active Scripts Medications Dose Route/Sig Max Daily Dose Days Date Category Doxycycline Hyclate 100 Mg Capsule 1 Cap PO BID 02/01/17 Rx Prednisone 20 Mg Tablet 2 Tab PO DAILY 02/01/17 Rx Spiriva (Tiotropium [place]) 18 Mcg Cap.w.dev 1 Cap IH DAILY 02/01/17 Rx Symbicort 160-4.5 Mcg Inhaler (Budesonide/Formoterol Fumarate) 10.2 Gm Hfa.aer.ad 1 Puff IH BID 1 02/01/17 Rx Impression . full consult dictated AECOPD resp Failure sec to above see orders Thanks WILLIAM LIVE MD Feb 01, 2017 09:59
== END 2017-02-01 09:45 | disposition home or self-care (01) | DRG 189 ==
LOC: ER 03:32 → 1 WEST ICU 04:30 → OBSVTOIN 13:26 → INTOOBSV 13:26
PROVIDERS: ADMIT Internal Medicine Hematology & Oncology; ATTEND Internal Medicine Hematology & Oncology
PROC: 5A09357 Assistance with Respiratory Ventilation, Less than 24 Consecutive Hours, Continuous Positive Airway Pressure (ICD-10-PCS; principal; 2017-01-31)
DX: J96.01 Acute respiratory failure with hypoxia (principal); J44.0 Chronic obstructive pulmonary disease with (acute) lower respiratory infection; R65.10 Systemic inflammatory response syndrome (SIRS) of non-infectious origin without acute organ dysfunction; I50.9 Heart failure, unspecified; J44.1 Chronic obstructive pulmonary disease with (acute) exacerbation; F17.210 Nicotine dependence, cigarettes, uncomplicated; I25.10 Atherosclerotic heart disease of native coronary artery without angina pectoris; J20.9 Acute bronchitis, unspecified; Z95.5 Presence of coronary angioplasty implant and graft; Z71.6 Tobacco abuse counseling
CPT/HCPCS: 36600; 51701; 71010; 80048; 80076; 82553; 82805; 82962; 83605; 83690; 83735; 83880; 84484; 85025; 85610; 87040; 87641; 90686; 93005; 93971; 94620; 94640; 94660; 96374; 96375; G0378; G0379; J0690; J2920; J2930; J3490; J7620; J7626; 99285-25

== ENCOUNTER 2017-07-11 01:35 | Inpatient (IN) | payer OTHER ==
[2017-07-11 01:53] LABS: ADD MAN DIFF? NO
[2017-07-11 01:59] LABS: BASO % 0 % (0-3); EOS % 0 % (0-3); HEMATOCRIT 45.3 % (39.0-53.0); HEMOGLOBIN 15.4 g/dL (13.0-17.5); LYMPH # 0.8 x10^3/uL (1.0-4.8); LYMPH % 8 % (24-48); MEAN CORPUSCULAR HEMOGLOBIN 32 pg (25-35); MEAN CORPUSCULAR HGB CONC 34 g/dL (31-37); MEAN CORPUSCULAR VOLUME 94 fL (79-100); MONO # 0.7 x10^3/uL (0.0-1.1); MONO % 8 % (0-9); NEUT # 7.6 x10^3uL (1.8-7.7); NEUT % 83 % (31-73); PLATELET COUNT 209 x10^3/uL (140-400); RED BLOOD COUNT 4.81 x10^6/uL (4.30-5.70); WHITE BLOOD COUNT 9.1 x10^3/uL (4.0-11.0)
[2017-07-11] MEDS: IV NORMAL SALINE 1000ML BAG 1,000 ML IV ×5 (02:00→23:26)
[2017-07-11] MEDS: methylPREDNISolone SOD SUCC PF 125 MG/2 ML VIAL. IV (02:04)
[2017-07-11] MEDS: cefTRIAXone IV Push 1 GM VIAL. IVP (02:04)
[2017-07-11] MEDS: IPRATRPIUM/ALBUTEROL 0.5/2.5MG 3 ML NEBU. NEB ×4 (02:05→20:22)
[2017-07-11 02:09] LABS: ANION GAP 7 (6-14); BLOOD UREA NITROGEN 7 mg/dL (8-26); CALCIUM 8.7 mg/dL (8.5-10.1); CARBON DIOXIDE 29 mmol/L (21-32); CHLORIDE 100 mmol/L (98-107); CREATININE 1.4 mg/dL (0.7-1.3); GFR 62.8; GLUCOSE 249 mg/dL (70-99); POTASSIUM 3.5 mmol/L (3.5-5.1); SODIUM 136 mmol/L (136-145)
[2017-07-11] MEDS: ACETAMINOPHEN 500 MG TABLET PO (02:15)
[2017-07-11 02:17] LABS: LACTIC ACID 1.8 mmol/L (0.4-2.0)
[2017-07-11 02:26] LABS: TROPONINI < 0.017 ng/mL (0.000-0.055)
[2017-07-11] MEDS: ACETAMINOPHEN 650 MG SUPP.RECT. PR (03:46)
[2017-07-11] MEDS: AZITHRMYCN 500MG IVPB FOR OMNI 250 ML IV (03:50)
[2017-07-11] MEDS ORDERED: ONDANSETRON PF 4 MG/2 ML VIAL. IV ×2 (04:30→08:45)
[2017-07-11 05:09] LABS: INFLUENZA B PATIENT NEGATIVE (NEGATIVE); OBC FLU VALID
[2017-07-11 05:11] LABS: INFLUENZA A PATIENT POSITIVE (NEGATIVE)
[2017-07-11 05:13] LABS: BARBITURATES NEG (NEG); BENZODIAZEPINES POS (NEG); CANNABINOIDS POS (NEG); COCAINE POS (NEG); METHADONE NEG (NEG); OPIATES NEG (NEG); PHENCYCLIDINE NEG (NEG)
[2017-07-11 05:22] LABS: AMPHETAMINE/METHAMPHETAMINE NEG (NEG); ETHANOL, URINE NEG (NEG)
[2017-07-11 05:35] LABS: BASE EXCESS ABG 2 mmol/L (-3-3); HCO3 ABG 27 mmol/L (21-28); PO2 ABG 71 mmHg (65-108); SAT O2 ABG 94 % (92-99)
[2017-07-11] MEDS ORDERED: NOREPINEPHRIN PREMIX 250 ML IV (06:00)
[2017-07-11 06:04] LABS: PCO2 ABG 42 mmHg (35-46); PH ABG 7.42 (7.35-7.45)
[2017-07-11 06:05] LABS: FIO2 ABG 30
[2017-07-11 08:06] LABS: TROPONINI < 0.017 ng/mL (0.000-0.055)
[2017-07-11] MEDS ORDERED: ALBUTEROL SULFATE 2.5 MG/3 ML NEBU. NEB (08:45)
[2017-07-11] MEDS ORDERED: DOCUSATE SODIUM 100 MG CAPSULE. PO (08:45)
[2017-07-11] MEDS ORDERED: ACETAMINOPHEN 325 MG TABLET. PO (08:45)
[2017-07-11] MEDS ORDERED: hydrALAZINE 20 MG/ML VIAL. IVP (08:45)
[2017-07-11] MEDS ORDERED: DEXTROSE 50% 25 GM / 50ML DISP.SYRIN. IV (08:45)
[2017-07-11] MEDS: INSULIN ASPART 300 UNITS/3 ML INSULN.PEN SQ ×3 (09:00→17:00)
[2017-07-11] MEDS: MORPHINE SULFATE 4 MG/ML DISP.SYRIN. IV ×2 (10:00→16:13)
[2017-07-11] MEDS: OSELTAMIVIR 75 MG CAPSULE PO ×2 (10:01→21:14)
[2017-07-11] MEDS: methylPREDNISolone SOD SUCC PF 40 MG/ML VIAL. IV ×2 (10:01→21:14)
[2017-07-11] MEDS: ENOXAPARIN 40 MG/0.4 ML SYRINGE. SQ (10:10)
[2017-07-11 10:30] LABS: POC GLUCOSE 194 mg/dL (70-99)
[2017-07-11 11:14] LABS: TROPONINI < 0.017 ng/mL (0.000-0.055)
[2017-07-11 16:30] LABS: POC GLUCOSE 162 mg/dL (70-99)
[2017-07-11 17:16] LABS: C DIFF BY PCR Negative (Negative)
[2017-07-11 17:16] LABS: MRSA BY PCR Negative (Negative)
[2017-07-11] MEDS: FAMOTIDINE 20 MG TABLET. PO (21:14)
[2017-07-12 06:00] LABS: BASO % 0 % (0-3); EOS % 0 % (0-3); HEMATOCRIT 41.6 % (39.0-53.0); HEMOGLOBIN 13.7 g/dL (13.0-17.5); LYMPH # 1.1 x10^3/uL (1.0-4.8); LYMPH % 5 % (24-48); MEAN CORPUSCULAR HEMOGLOBIN 31 pg (25-35); MEAN CORPUSCULAR HGB CONC 33 g/dL (31-37); MEAN CORPUSCULAR VOLUME 95 fL (79-100); MONO # 0.7 x10^3/uL (0.0-1.1); MONO % 3 % (0-9); NEUT # 20.7 x10^3uL (1.8-7.7); NEUT % 92 % (31-73); PLATELET COUNT 210 x10^3/uL (140-400); RED BLOOD COUNT 4.37 x10^6/uL (4.30-5.70); RED CELL DISTRIBUTION WIDTH 13.3 % (11.5-14.5); WHITE BLOOD COUNT 22.5 x10^3/uL (4.0-11.0)
[2017-07-12 06:28] LABS: ADD MAN DIFF? YES
[2017-07-12 06:35] LABS: ANION GAP 10 (6-14); BLOOD UREA NITROGEN 20 mg/dL (8-26); CALCIUM 8.5 mg/dL (8.5-10.1); CARBON DIOXIDE 27 mmol/L (21-32); CHLORIDE 105 mmol/L (98-107); CREATININE 1.1 mg/dL (0.7-1.3); GFR 82.9; GLUCOSE 173 mg/dL (70-99); POTASSIUM 4.3 mmol/L (3.5-5.1); SODIUM 142 mmol/L (136-145)
[2017-07-12] MEDS: INSULIN ASPART 300 UNITS/3 ML INSULN.PEN SQ ×3 (08:00→17:00)
[2017-07-12] MEDS: methylPREDNISolone SOD SUCC PF 40 MG/ML VIAL. IV ×2 (08:23→20:56)
[2017-07-12] MEDS: OSELTAMIVIR 75 MG CAPSULE PO ×2 (08:23→20:56)
[2017-07-12] MEDS: ENOXAPARIN 40 MG/0.4 ML SYRINGE. SQ (08:24)
[2017-07-12] MEDS: IPRATRPIUM/ALBUTEROL 0.5/2.5MG 3 ML NEBU. NEB ×4 (08:31→19:54)
[2017-07-12 08:56] LABS: BASE EXCESS ABG 1 mmol/L (-3-3); HCO3 ABG 27 mmol/L (21-28); PCO2 ABG 47 mmHg (35-46); PH ABG 7.38 (7.35-7.45); PO2 ABG 75 mmHg (65-108); SAT O2 ABG 94 % (92-99)
[2017-07-12 09:16] LABS: % BANDS 21 % (0-9); % LYMPHS 3 % (24-48); % MONOS 7 % (0-10); % SEGS 69 % (35-66); PLT ESTIMATE ADEQUATE (ADEQUATE)
[2017-07-12 09:25] LABS: FIO2 ABG 28
[2017-07-12 12:14] LABS: POC GLUCOSE 161 mg/dL (70-99)
[2017-07-12 12:14] LABS: POC GLUCOSE 131 mg/dL (70-99)
[2017-07-12] MEDS: MORPHINE SULFATE 4 MG/ML DISP.SYRIN. IV (14:47)
[2017-07-12 17:34] LABS: POC GLUCOSE 140 mg/dL (70-99)
[2017-07-12] MEDS: LACTOBACILLUS RHAMNOSUS GG 1 CAPSULE. PO (20:56)
[2017-07-12] MEDS: FAMOTIDINE 20 MG TABLET. PO (20:56)
[2017-07-12] MEDS: guaiFENesin DM 200MG/20MG 10 ML SYRUP PO (22:54)
[2017-07-13 07:35] LABS: ADD MAN DIFF? NO
[2017-07-13 07:56] LABS: BASO # 0.1 x10^3/uL (0.0-0.2); BASO % 0 % (0-3); EOS % 0 % (0-3); HEMATOCRIT 42.5 % (39.0-53.0); HEMOGLOBIN 13.9 g/dL (13.0-17.5); LYMPH # 1.2 x10^3/uL (1.0-4.8); LYMPH % 5 % (24-48); MEAN CORPUSCULAR HEMOGLOBIN 31 pg (25-35); MEAN CORPUSCULAR HGB CONC 33 g/dL (31-37); MEAN CORPUSCULAR VOLUME 94 fL (79-100); MONO # 0.9 x10^3/uL (0.0-1.1); MONO % 4 % (0-9); NEUT % 90 % (31-73); PLATELET COUNT 239 x10^3/uL (140-400); RED BLOOD COUNT 4.51 x10^6/uL (4.30-5.70); WHITE BLOOD COUNT 22.2 x10^3/uL (4.0-11.0)
[2017-07-13 07:59] LABS: ANION GAP 8 (6-14); BLOOD UREA NITROGEN 15 mg/dL (8-26); CALCIUM 8.6 mg/dL (8.5-10.1); CARBON DIOXIDE 31 mmol/L (21-32); CHLORIDE 104 mmol/L (98-107); CREATININE 0.9 mg/dL (0.7-1.3); GFR 104.5; GLUCOSE 136 mg/dL (70-99); SODIUM 143 mmol/L (136-145)
[2017-07-13] MEDS: INSULIN ASPART 300 UNITS/3 ML INSULN.PEN SQ ×3 (08:00→17:51)
[2017-07-13 08:08] LABS: POC GLUCOSE 137 mg/dL (70-99)
[2017-07-13] MEDS: IPRATRPIUM/ALBUTEROL 0.5/2.5MG 3 ML NEBU. NEB ×4 (09:04→20:00)
[2017-07-13] MEDS: LACTOBACILLUS RHAMNOSUS GG 1 CAPSULE. PO ×2 (09:36→20:11)
[2017-07-13] MEDS: methylPREDNISolone SOD SUCC PF 40 MG/ML VIAL. IV (09:36)
[2017-07-13] MEDS: OSELTAMIVIR 75 MG CAPSULE PO ×2 (09:36→20:11)
[2017-07-13 12:55] LABS: POC GLUCOSE 192 mg/dL (70-99)
[2017-07-13] MEDS: traMADol 50 MG TABLET PO (14:26)
[2017-07-13] MEDS ORDERED: IBUPROFEN 400 MG TABLET. PO (16:00)
[2017-07-13] MEDS: HYDROcodone/APAP 5/325MG 1 TAB TABLET PO (16:42)
[2017-07-13 18:28] LABS: POC GLUCOSE 216 mg/dL (70-99)
[2017-07-13] MEDS: FAMOTIDINE 20 MG TABLET. PO (20:11)
[2017-07-13 21:04] LABS: POC GLUCOSE 142 mg/dL (70-99)
[2017-07-14 08:00] LABS: POC GLUCOSE 112 mg/dL (70-99)
[2017-07-14] MEDS: INSULIN ASPART 300 UNITS/3 ML INSULN.PEN SQ (08:00)
[2017-07-14] MEDS: OSELTAMIVIR 75 MG CAPSULE PO (08:16)
[2017-07-14] MEDS: predniSONE 20 MG TABLET PO (08:17)
[2017-07-14] MEDS: HYDROcodone/APAP 5/325MG 1 TAB TABLET PO (08:17)
[2017-07-14] MEDS: LACTOBACILLUS RHAMNOSUS GG 1 CAPSULE. PO (08:17)
[2017-07-14] MEDS: IPRATRPIUM/ALBUTEROL 0.5/2.5MG 3 ML NEBU. NEB (08:24)
[2017-07-15 04:33] LABS: POC GLUCOSE 195 mg/dL (70-99)
[2017-07-16] MEDS ORDERED: predniSONE 10 MG TABLET PO (09:00)
[2017-07-18] MEDS ORDERED: predniSONE 5 MG TABLET PO (09:00)
== END 2017-07-14 10:30 | disposition home or self-care (01) | DRG 871 ==
LOC: ER 01:35 → 6 SOUTH 07-12 18:36 → 1 WEST ICU 02:24
PROC: 5A09357 Assistance with Respiratory Ventilation, Less than 24 Consecutive Hours, Continuous Positive Airway Pressure (ICD-10-PCS; principal; 2017-07-11)
DX: A41.9 Sepsis, unspecified organism (principal); J10.00 Influenza due to other identified influenza virus with unspecified type of pneumonia; J96.01 Acute respiratory failure with hypoxia; J44.1 Chronic obstructive pulmonary disease with (acute) exacerbation; J44.0 Chronic obstructive pulmonary disease with (acute) lower respiratory infection; I50.9 Heart failure, unspecified; E11.9 Type 2 diabetes mellitus without complications; F12.10 Cannabis abuse, uncomplicated; F14.10 Cocaine abuse, uncomplicated; T38.0X5A Adverse effect of glucocorticoids and synthetic analogues, initial encounter; F17.210 Nicotine dependence, cigarettes, uncomplicated; J10.1 Influenza due to other identified influenza virus with other respiratory manifestations; J20.9 Acute bronchitis, unspecified; Z79.51 Long term (current) use of inhaled steroids; Z91.14 Patient's other noncompliance with medication regimen
CPT/HCPCS: 36415; 36600; 71045; 80048; 80307; 82805; 82962; 83605; 84484; 85007; 85025; 87040; 87324; 87641; 87804; 87804-59; 93005; 94640; 94660; 94760; J0456; J0696; J1650; J1815; J1956; J2060; J2270; J2920; J2930; J7030; J7512; J7620

== ENCOUNTER 2017-09-13 20:04 | Observation (INO) | payer OTHER ==
[2017-09-13] MEDS: IPRATRPIUM/ALBUTEROL 0.5/2.5MG 3 ML NEBU. NEB (20:43)
[2017-09-13] MEDS: ALBUTEROL SULFATE 2.5 MG/3 ML NEBU. NEB (20:43)
[2017-09-13 20:51] LABS: ADD MAN DIFF? NO
[2017-09-13] MEDS: methylPREDNISolone SOD SUCC PF 125 MG/2 ML VIAL. IV (20:52)
[2017-09-13 20:53] LABS: BASO % 1 % (0-3); EOS # 0.5 x10^3/uL (0.0-0.7); EOS % 6 % (0-3); HEMATOCRIT 41.8 % (39.0-53.0); HEMOGLOBIN 14.2 g/dL (13.0-17.5); LYMPH # 2.8 x10^3/uL (1.0-4.8); LYMPH % 36 % (24-48); MEAN CORPUSCULAR HEMOGLOBIN 32 pg (25-35); MEAN CORPUSCULAR HGB CONC 34 g/dL (31-37); MEAN CORPUSCULAR VOLUME 94 fL (79-100); MONO # 0.8 x10^3/uL (0.0-1.1); MONO % 10 % (0-9); NEUT # 3.8 x10^3uL (1.8-7.7); NEUT % 49 % (31-73); PLATELET COUNT 259 x10^3/uL (140-400); RED BLOOD COUNT 4.43 x10^6/uL (4.30-5.70); RED CELL DISTRIBUTION WIDTH 14.2 % (11.5-14.5); WHITE BLOOD COUNT 7.9 x10^3/uL (4.0-11.0)
[2017-09-13 21:12] LABS: ANION GAP 12 (6-14); BLOOD UREA NITROGEN 11 mg/dL (8-26); BUN/CREATININE RATIO 11 (6-20); CALCIUM 8.9 mg/dL (8.5-10.1); CARBON DIOXIDE 25 mmol/L (21-32); CHLORIDE 105 mmol/L (98-107); GFR 92.5; GLUCOSE 139 mg/dL (70-99); POTASSIUM 3.4 mmol/L (3.5-5.1); SODIUM 142 mmol/L (136-145)
[2017-09-13 21:17] LABS: ALBUMIN 3.6 g/dL (3.4-5.0); ALBUMIN/GLOBULIN RATIO 0.9 (1.0-1.7); ALK PHOS 71 U/L (46-116); ALT (SGPT) 18 U/L (16-63); AST (SGOT) 19 U/L (15-37); TOTAL BILIRUBIN 0.7 mg/dL (0.2-1.0); TOTAL PROTEIN 7.5 g/dL (6.4-8.2)
[2017-09-13 21:20] LABS: TROPONINI < 0.017 ng/mL (0.000-0.055)
[2017-09-13 21:24] LABS: NT-PRO BNP 50 pg/mL (0-124)
[2017-09-13] MEDS ORDERED: ACETAMINOPHEN 325 MG TABLET. PO (21:30)
[2017-09-13] MEDS ORDERED: ONDANSETRON PF 4 MG/2 ML VIAL. IV (21:30)
[2017-09-13] MEDS ORDERED: MORPHINE SULFATE 2 MG/ML DISP.SYRIN. IV (21:30)
[2017-09-13] MEDS: MORPHINE SULFATE 4 MG/ML DISP.SYRIN. IV (22:39)
[2017-09-14 01:06] LABS: LACTIC ACID 1.9 mmol/L (0.4-2.0)
[2017-09-14] MEDS ORDERED: MORPHINE SULFATE 4 MG/ML DISP.SYRIN. (06:00)
[2017-09-14] MEDS: IPRATRPIUM/ALBUTEROL 0.5/2.5MG 3 ML NEBU. NEB ×2 (07:10→11:38)
== END 2017-09-14 12:15 | disposition home or self-care (01) ==
LOC: ER 20:04 → 5 NORTH 20:30
DX: J44.1 Chronic obstructive pulmonary disease with (acute) exacerbation (principal); R19.7 Diarrhea, unspecified; F17.200 Nicotine dependence, unspecified, uncomplicated; I50.9 Heart failure, unspecified; Z83.3 Family history of diabetes mellitus
CPT/HCPCS: 36415; 71045; 80053; 83605; 83880; 84484; 85025; 87040; 93005; 94640; 94760; 96374; 96375; 99285-25; G0378; G0379; J2270; J2930; J7613; J7620

== ENCOUNTER 2017-10-17 19:22 | Emergency (ER) | payer OTHER ==
[2017-10-17] MEDS: HYDROcodone/APAP 10/325 1 TAB TABLET PO (20:00)
== END 2017-10-17 20:53 | disposition home or self-care (01) ==
LOC: ER 20:53
DX: S60.222A Contusion of left hand, initial encounter (principal); J44.9 Chronic obstructive pulmonary disease, unspecified; F12.10 Cannabis abuse, uncomplicated; F10.10 Alcohol abuse, uncomplicated; W20.8XXA Other cause of strike by thrown, projected or falling object, initial encounter; Y93.89 Activity, other specified; Y99.8 Other external cause status; Y92.89 Other specified places as the place of occurrence of the external cause
CPT/HCPCS: 29130; 73130; 99284-25

== ENCOUNTER 2018-03-12 15:43 | Emergency (ER) | payer OTHER ==
[~2018-03-12] VITALS: Ht 167.6 cm; Wt 70.3 kg
[~2018-03-12 15:43] MED LIST: BUDE10.2 IH; DOXY100C2 PO; HYDR-971 PO; LEVO500T59 PO; METF500T16 PO; PRED20TA PO; TIOT18CA IH
[2018-03-12 17:05] LABS: BASO # 0.1 x10^3/uL (0.0-0.2); BASO % 1 % (0-3); EOS # 0.2 x10^3/uL (0.0-0.7); EOS % 3 % (0-3); HEMATOCRIT 42.1 % (39.0-53.0); HEMOGLOBIN 14.1 g/dL (13.0-17.5); LYMPH # 2.7 x10^3/uL (1.0-4.8); LYMPH % 31 % (24-48); MEAN CORPUSCULAR HEMOGLOBIN 32 pg (25-35); MEAN CORPUSCULAR HGB CONC 34 g/dL (31-37); MEAN CORPUSCULAR VOLUME 94 fL (79-100); MONO # 0.6 x10^3/uL (0.0-1.1); MONO % 7 % (0-9); NEUT # 4.9 x10^3uL (1.8-7.7); NEUT % 58 % (31-73); PLATELET COUNT 309 x10^3/uL (140-400); RED BLOOD COUNT 4.48 x10^6/uL (4.30-5.70); RED CELL DISTRIBUTION WIDTH 13.8 % (11.5-14.5); WHITE BLOOD COUNT 8.6 x10^3/uL (4.0-11.0)
[2018-03-12 17:15] LABS: PROTHROMBIN TIME PATIENT 12.4 SEC (11.7-14.0)
[2018-03-12 17:18] LABS: D-DIMER 0.95 ug/mlFEU (0.00-0.50)
--- NOTE | 2018-03-12 17:27 | RAD ---
EXAM: Chest, single view. HISTORY: Shortness of breath. COMPARISON: 09/13/2017 FINDINGS: A frontal view of the chest obtained. There is stable blunting of the right costophrenic angle likely due to pleural parenchymal scarring. There is also stable suspected linear scarring along the right minor fissure. There are radiodense foreign bodies overlying the right upper thorax. There are healed rib fractures. The heart is normal in size. There is no pneumothorax. There is internal fixation of the left humerus. IMPRESSION: 1. Stable suspected right basilar pleural-parenchymal scarring and scarring along the right minor fissure. 2. No acute pulmonary finding. Electronically signed by: Starla Dos Santos MD (03/12/2018 5:24 PM) [facility]
[2018-03-12 17:54] LABS: CALCIUM 9.5 mg/dL (8.5-10.1); GFR 92.5; POTASSIUM 4.2 mmol/L (3.5-5.1)
[2018-03-12 18:00] VITALS: BP 133/88
[2018-03-12 18:00] LABS: ALBUMIN 3.3 g/dL (3.4-5.0); ALBUMIN/GLOBULIN RATIO 0.8 (1.0-1.7); TOTAL BILIRUBIN 0.5 mg/dL (0.2-1.0); TOTAL PROTEIN 7.6 g/dL (6.4-8.2)
[2018-03-12] MEDS ORDERED: CONTRAST GIVEN. MC PRN (18:00)
[2018-03-12] MEDS ORDERED: IOHEXOL 300 MG/ML 100ML VIAL. IV ONE (18:00)
[2018-03-12] MEDS ORDERED: methylPREDNISolone SOD SUCC PF 125 MG/2 ML VIAL. IV ONE (18:15)
[2018-03-12] MEDS ORDERED: IPRATRPIUM/ALBUTEROL 0.5/2.5MG 3 ML NEBU. NEB ONE (18:15)
--- NOTE | 2018-03-12 18:46 | EKG ---
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
--- NOTE | 2018-03-12 18:46 | RAD ---
EXAM: Chest CT angiogram with intravenous contrast. HISTORY: Shortness of breath. TECHNIQUE: Computed tomographic images of the chest were obtained following the administration of 75 cc Omnipaque 300 intravenous contrast. Multiplanar reformatting was performed. Three-dimensional maximum intensity projections were obtained. *One or more of the following individualized dose reduction techniques were utilized for this examination: 1. Automated exposure control. 2. Adjustment of the mA and/or kV according to patient size. 3. Use of iterative reconstruction technique. COMPARISON: None. FINDINGS: The exam is limited due to respiratory motion. No convincing pulmonary embolism is seen. However, the lower lobe subsegmental pulmonary arteries are not well assessed. There is no pleural effusion or pneumothorax. There is emphysema with large anterior right mid and lower thoracic bullae. There is lateral right basilar pleural-parenchymal scarring. There is also suspected atelectasis or scarring within the lingula. No suspicious nodule is seen. The heart is normal in size. The aorta is normal in caliber. There is no lymphadenopathy. There are few calcified granulomas. There are cranial-most throughout the spleen. There is a 4.0 cm cyst within the right kidney. There are degenerative changes throughout the spine. There is no suspicious osseous lesion. IMPRESSION: 1. No evidence of pulmonary embolism, with limited evaluation of the lower lobe pulmonary arteries due to significant respiratory motion. 2. Emphysema with large right mid and lower thoracic bullae. There is adjacent right lateral basilar pleural-parenchymal scarring and suspected scarring or atelectasis within the lingula. Electronically signed by: Starla Dos Santos MD (03/12/2018 6:42 PM) [facility]
[2018-03-12] MEDS ORDERED: PRED20TA PO (19:41)
[2018-03-12] MEDS ORDERED: DOXY100C2 PO (19:41)
[2018-03-12] MEDS ORDERED: predniSONE 10 MG TABLET PO ONE (19:45)
--- NOTE | 2018-03-12 21:37 | PHYS DOC ---
Past Medical History Past Medical History: CHF, COPD, Heart Disease Additional Past Medical Histor: hernia Past Surgical History: Other Additional Past Surgical Histo: Hernia; left and arm surgery Alcohol Use: Heavy Drug Use: Marijuana Adult General Chief Complaint Chief Complaint: SHORTNESS OF BREATH HPI HPI Patient is a 57 year old M [facility] CC OF [facility]. PT WAS INTUBATED LAST WEEK AT [facility] HE TELLS ME, DUE TO HIS COPD. HE HAS A VIDEO ON HIS PHONE THAT HIS FAMILY TOOK. Patient states that he just wanted to come in sooner because he did not want to get that bad this time around he says he had said some coughing and some wheezing over the last couple of days he is using his albuterol he says he thinks he might need some prednisone as that has helped him before. No fever chest pain with coughing only Symptoms are slowly worsening with time they're mild to moderate in nature Review of Systems Review of Systems Constitutional: Denies fever or chills [] Eyes: Denies change in visual acuity, redness, or eye pain [] Cardiovascular: No additional information not addressed in HPI [] GI: Denies abdominal pain, nausea, vomiting, bloody stools or diarrhea [] : Denies dysuria or hematuria [] Musculoskeletal: Integument: Denies rash or skin lesions [] Neurologic: Denies headache, focal weakness or sensory changes [] All other systems were reviewed and found to be within normal limits, except as documented in this note. Current Medications Current Medications Current Medications Medications (Trade) Dose Ordered Sig/Earline Start Time Stop Time Status Last Admin Dose Admin Albuterol/ Ipratropium (Duoneb) 3 ml 1X ONCE 03/12/18 18:15 03/12/18 18:16 DC 03/12/18 18:03 3 ML Info (CONTRAST GIVEN -- Rx MONITORING) 1 each PRN DAILY PRN 03/12/18 18:00 03/12/18 20:00 DC Iohexol (Omnipaque 300 Mg/ml) 75 ml 1X ONCE 03/12/18 18:00 03/12/18 18:01 DC 03/12/18 18:00 75 ML Methylprednisolone Sodium Succinate (SOLU-Medrol 125MG VIAL) 125 mg 1X ONCE 03/12/18 18:15 03/12/18 18:16 DC 03/12/18 18:15 125 MG Prednisone (Prednisone) 50 mg 1X ONCE 03/12/18 19:45 03/12/18 19:46 DC Allergies Allergies Allergies Coded Allergies Type Severity Reaction Last Updated Verified No Known Drug Allergies 01/31/17 No Physical Exam Physical Exam Constitutional: Well developed, well nourished, no acute distress, non-toxic appearance. [] HENT: Normocephalic, atraumatic, bilateral external ears normal, oropharynx moist, no oral exudates, nose normal. [] Eyes: PERRLA, EOMI, conjunctiva normal, no discharge. [] Neck: Normal range of motion, no tenderness, supple, no stridor. [] Cardiovascular:Heart rate regular rhythm, no murmur [] Lungs & Thorax: Faint wheezing bilaterally Abdomen: Bowel sounds normal, soft, no tenderness, no masses, no pulsatile masses. [] Skin: Warm, dry, no erythema, no rash. [] Back: No tenderness, no CVA tenderness. [] Extremities: No tenderness, no cyanosis, no clubbing, ROM intact, trace bilateral no asymmetric edema Neurologic: Alert and oriented X 3, normal motor function, normal sensory function, no focal deficits noted. [] Psychologic: Affect normal, judgement normal, mood normal. [] Current Patient Data Vital Signs Vital Signs Date Time Temp Pulse Resp B/P (MAP) Pulse Ox O2 Delivery O2 Flow Rate FiO2 03/12/18 18:05 98 Nasal Cannula 2.0 03/12/18 18:00 88 17 133/88 (103) 03/12/18 15:56 97.5 97.5 Lab Values Laboratory Tests Test 03/12/18 16:09 White Blood Count 8.6 x10^3/uL (4.0-11.0) Red Blood Count 4.48 x10^6/uL (4.30-5.70) Hemoglobin 14.1 g/dL (13.0-17.5) Hematocrit 42.1 % (39.0-53.0) Mean Corpuscular Volume 94 fL (79-100) Mean Corpuscular Hemoglobin 32 pg (25-35) Mean Corpuscular Hemoglobin Concent 34 g/dL (31-37) Red Cell Distribution Width 13.8 % (11.5-14.5) Platelet Count 309 x10^3/uL (140-400) Neutrophils (%) (Auto) 58 % (31-73) Lymphocytes (%) (Auto) 31 % (24-48) Monocytes (%) (Auto) 7 % (0-9) Eosinophils (%) (Auto) 3 % (0-3) Basophils (%) (Auto) 1 % (0-3) Neutrophils # (Auto) 4.9 x10^3uL (1.8-7.7) Lymphocytes # (Auto) 2.7 x10^3/uL (1.0-4.8) Monocytes # (Auto) 0.6 x10^3/uL (0.0-1.1) Eosinophils # (Auto) 0.2 x10^3/uL (0.0-0.7) Basophils # (Auto) 0.1 x10^3/uL (0.0-0.2) Prothrombin Time 12.4 SEC (11.7-14.0) Prothrombin Time INR 1.0 (0.8-1.1) D-Dimer (Eboni) 0.95 ug/mlFEU (0.00-0.50) H Sodium Level 143 mmol/L (136-145) Potassium Level 4.2 mmol/L (3.5-5.1) Chloride Level 105 mmol/L (98-107) Carbon Dioxide Level 30 mmol/L (21-32) Anion Gap 8 (6-14) Blood Urea Nitrogen 15 mg/dL (8-26) Creatinine 1.0 mg/dL (0.7-1.3) Estimated GFR (Cockcroft-Gault) 92.5 BUN/Creatinine Ratio 15 (6-20) Glucose Level 99 mg/dL (70-99) Calcium Level 9.5 mg/dL (8.5-10.1) Total Bilirubin 0.5 mg/dL (0.2-1.0) Aspartate Amino Transferase (AST) 19 U/L (15-37) Alanine Aminotransferase (ALT) 19 U/L (16-63) Alkaline Phosphatase 62 U/L (46-116) Troponin I Quantitative < 0.017 ng/mL (0.000-0.055) GG-Kbn-O-Type Natriuretic Peptide 28 pg/mL (0-124) Total Protein 7.6 g/dL (6.4-8.2) Albumin 3.3 g/dL (3.4-5.0) L Albumin/Globulin Ratio 0.8 (1.0-1.7) L Laboratory Tests 03/12/18 16:09 Laboratory Tests 03/12/18 16:09 EKG EKG [] Interpretation Time: EKG shows a normal sinus rhythm rate of 92 no acute ischemic changes noted this was interpreted by me the time of encounter. Radiology/Procedures Radiology/Procedures [] Impressions: EXAM: Chest CT angiogram with intravenous contrast. HISTORY: Shortness of breath. TECHNIQUE: Computed tomographic images of the chest were obtained following the administration of 75 cc Omnipaque 300 intravenous contrast. Multiplanar reformatting was performed. Three-dimensional maximum intensity projections were obtained. *One or more of the following individualized dose reduction techniques were utilized for this examination: 1. Automated exposure control. 2. Adjustment of the mA and/or kV according to patient size. 3. Use of iterative reconstruction technique. COMPARISON: None. FINDINGS: The exam is limited due to respiratory motion. No convincing pulmonary embolism is seen. However, the lower lobe subsegmental pulmonary arteries are not well assessed. There is no pleural effusion or pneumothorax. There is emphysema with large anterior right mid and lower thoracic bullae. There is lateral right basilar pleural-parenchymal scarring. There is also suspected atelectasis or scarring within the lingula. No suspicious nodule is seen. The heart is normal in size. The aorta is normal in caliber. There is no lymphadenopathy. There are few calcified granulomas. There are cranial-most throughout the spleen. There is a 4.0 cm cyst within the right kidney. There are degenerative changes throughout the spine. There is no suspicious osseous lesion. IMPRESSION: 1. No evidence of pulmonary embolism, with limited evaluation of the lower lobe pulmonary arteries due to significant respiratory motion. 2. Emphysema with large right mid and lower thoracic bullae. There is adjacent right lateral basilar pleural-parenchymal scarring and suspected scarring or atelectasis within the lingula. Electronically signed by: Starla Dos Santos MD (03/12/2018 6:42 PM) [facility] DICTATED and SIGNED BY: STARLA DOS SANTOS MD Course & Med Decision Making Course & Med Decision Making Pertinent Labs and Imaging studies reviewed. (See chart for details) 57-year-old male presenting with shortness of breath. Known COPD recent intubation earlier this month at an outside hospital. Patient saturating 93% on room air he actually is awake and alert and really only has mild wheezing with minimal if any tachypnea he is pretty well-appearing overall. He did eat a meal while in the emergency room without any difficulty at all I did do a d-dimer due to his recent hospitalization I had low suspicion for PE CT scan showed no large PE . Patient felt better in the emergency room with the above treatment. He really thinks prednisone will help that he wants a prescription for that I think this is very reasonable he was given prednisone taking way too long, ANTIBIOTICS WELL. Dragon Disclaimer Dragon Disclaimer This electronic medical record was generated, in whole or in part, using a voice recognition dictation system. Departure Departure Impression: Primary Impression: COPD exacerbation Disposition: HOME, SELF-CARE Condition: STABLE Referrals: NO PCP (PCP) Patient Instructions: Chronic Obstructive Pulmonary Disease Exacerbation, Easy- to-Read Scripts Doxycycline Hyclate (DOXYCYCLINE HYCLATE) 100 Mg Capsule 1 CAP PO BID, #14 CAP Prov: PAVITHRA JONES MD 03/12/18 Prednisone (PREDNISONE) 20 Mg Tablet 1 EACH PO DAILY, #13 TAB take two tablets daily for four days, then take one tablet daily for four days, then take 0.5 tablet daily for two days. Prov: PAVITHRA JONES MD 03/12/18 PAVITHRA JONES MD Mar 12, 2018 21:37
== END 2018-03-12 19:55 | disposition home or self-care (01) ==
LOC: ER 15:43
DX: J44.1 Chronic obstructive pulmonary disease with (acute) exacerbation (principal); F10.20 Alcohol dependence, uncomplicated; Y90.9 Presence of alcohol in blood, level not specified; Z86.79 Personal history of other diseases of the circulatory system
CPT/HCPCS: 36415; 71045; 71275; 80053; 83880; 84484; 85025; 85379; 85610; 93005; 94640; 96374; 99285; J2930; J7620; Q9967

== ENCOUNTER 2018-05-13 01:24 | Emergency (ER) | payer SELFPAY ==
[~2018-05-13] VITALS: Ht 162.6 cm; Wt 71.2 kg
[~2018-05-13 01:24] MED LIST changes: +DOXY100T PO; +HYDR-3164 PO; -HYDR-971 PO; +LISI-130 PO
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
[2018-05-13] MEDS ORDERED: IPRATROPIUM BROMIDE 0.5 MG/2.5 ML NEBU. NEB ONE (02:00)
[2018-05-13 02:08] LABS: BASO % 1 % (0-3); EOS # 0.1 x10^3/uL (0.0-0.7); EOS % 2 % (0-3); HEMATOCRIT 44.4 % (39.0-53.0); HEMOGLOBIN 15.5 g/dL (13.0-17.5); LYMPH # 2.9 x10^3/uL (1.0-4.8); LYMPH % 39 % (24-48); MEAN CORPUSCULAR HEMOGLOBIN 32 pg (25-35); MEAN CORPUSCULAR HGB CONC 35 g/dL (31-37); MEAN CORPUSCULAR VOLUME 93 fL (79-100); MONO # 0.7 x10^3/uL (0.0-1.1); MONO % 9 % (0-9); NEUT # 3.9 x10^3uL (1.8-7.7); NEUT % 50 % (31-73); PLATELET COUNT 245 x10^3/uL (140-400); RED BLOOD COUNT 4.77 x10^6/uL (4.30-5.70); WHITE BLOOD COUNT 7.6 x10^3/uL (4.0-11.0)
[2018-05-13 02:18] LABS: CALCIUM 9.8 mg/dL (8.5-10.1); CREATININE 1.1 mg/dL (0.7-1.3); GFR 82.6; POTASSIUM 3.5 mmol/L (3.5-5.1)
[2018-05-13 02:23] LABS: ALBUMIN 3.8 g/dL (3.4-5.0); TOTAL BILIRUBIN 0.5 mg/dL (0.2-1.0); TOTAL PROTEIN 7.8 g/dL (6.4-8.2)
[2018-05-13 02:38] LABS: INFLUENZA A PATIENT NEGATIVE (NEGATIVE); INFLUENZA B PATIENT NEGATIVE (NEGATIVE)
[2018-05-13 02:55] VITALS: BP 162/86
[2018-05-13] MEDS ORDERED: VENTOLIN HFA18 GM INH (03:04)
[2018-05-13] MEDS ORDERED: PRED50TA PO (03:04)
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
--- NOTE | 2018-05-13 07:58 | EKG ---
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
== END 2018-05-13 03:05 | disposition home or self-care (01) ==
LOC: ER 01:24
DX: J44.1 Chronic obstructive pulmonary disease with (acute) exacerbation (principal); I50.9 Heart failure, unspecified; F17.210 Nicotine dependence, cigarettes, uncomplicated; F10.20 Alcohol dependence, uncomplicated; Y90.9 Presence of alcohol in blood, level not specified
CPT/HCPCS: 36415; 71045; 80053; 83880; 84484; 85025; 85379; 87040; 87804; 93005; 94640; 99284; J7644

== ENCOUNTER 2018-07-16 05:01 | Inpatient (IN) | payer OTHER ==
[~2018-07-16] VITALS: Ht 172.7 cm; Wt 72.1 kg
[2018-07-16] VITALS (8 sets, daily range): BP systolic 111–198; BP diastolic 80–149
[~2018-07-16 05:01] MED LIST changes: +PRED50TA PO; +VENTOLIN HFA18 GM INH
[2018-07-16] MEDS ORDERED: ALBUTEROL SULFATE 2.5 MG/3 ML NEBU. CONT NEB ONE (05:30)
[2018-07-16] MEDS ORDERED: methylPREDNISolone SOD SUCC PF 125 MG/2 ML VIAL. IV ONE (05:30)
--- NOTE | 2018-07-16 05:42 | RAD ---
Indication:difficulty breathing TECHNIQUE:Portable AP chest X-ray COMPARISON:05/13/2018 FINDINGS: Heart is normal in size. Lungs are hyperinflated. Scarring is seen in the right midlung zone. No focal consolidation. No pneumothorax or pleural effusion. Visualized bony thorax within normal limits. IMPRESSION: Findings of COPD. Electronically signed by: Power Gutierrez DO (07/16/2018 5:39 AM) [facility]
[2018-07-16 05:46] LABS: BASO % 0 % (0-3); EOS # 0.1 x10^3/uL (0.0-0.7); EOS % 2 % (0-3); HEMATOCRIT 42.3 % (39.0-53.0); HEMOGLOBIN 14.2 g/dL (13.0-17.5); LYMPH # 2.8 x10^3/uL (1.0-4.8); LYMPH % 37 % (24-48); MEAN CORPUSCULAR HEMOGLOBIN 32 pg (25-35); MEAN CORPUSCULAR HGB CONC 34 g/dL (31-37); MEAN CORPUSCULAR VOLUME 94 fL (79-100); MONO # 0.7 x10^3/uL (0.0-1.1); MONO % 9 % (0-9); NEUT # 3.9 x10^3uL (1.8-7.7); NEUT % 52 % (31-73); PLATELET COUNT 234 x10^3/uL (140-400); RED CELL DISTRIBUTION WIDTH 13.1 % (11.5-14.5); WHITE BLOOD COUNT 7.5 x10^3/uL (4.0-11.0)
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
[2018-07-16] MEDS ORDERED: DOXYCYCLINE HYCLATE 100 MG TABLET PO ONE (06:00)
--- NOTE | 2018-07-16 07:12 | EKG ---
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
[2018-07-16 07:30] LABS: CALCIUM 8.8 mg/dL (8.5-10.1); CREATININE 0.8 mg/dL (0.7-1.3); GFR 119.3; POTASSIUM 3.8 mmol/L (3.5-5.1)
[2018-07-16 07:36] LABS: ALBUMIN 3.4 g/dL (3.4-5.0); ALBUMIN/GLOBULIN RATIO 0.8 (1.0-1.7); TOTAL BILIRUBIN 0.5 mg/dL (0.2-1.0); TOTAL PROTEIN 7.6 g/dL (6.4-8.2)
[2018-07-16 07:40] LABS: PROTHROMBIN TIME PATIENT 13.2 SEC (11.7-14.0)
[2018-07-16] MEDS ORDERED: IPRATRPIUM/ALBUTEROL 0.5/2.5MG 3 ML NEBU. NEB SCH (08:00)
[2018-07-16 10:20] LABS: BASE EXCESS ABG 2 mmol/L (-3-3); HCO3 ABG 27 mmol/L (21-28); PCO2 ABG 45 mmHg (35-46); PO2 ABG 65 mmHg (65-108); SAT O2 ABG 92 % (92-99)
[2018-07-16 10:21] LABS: FIO2 ABG 21
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
[2018-07-16] MEDS: HYDROcodone/APAP 5/325MG 1 TAB TABLET PO PRN ×2 (10:47→16:43)
[2018-07-16] MEDS: LORazepam 1 MG TABLET PO SCH ×4 (10:50→22:41)
[2018-07-16 11:19] LABS: DIRECT BILIRUBIN 0.1 mg/dL (0.0-0.2)
[2018-07-16] MEDS: LISINOPRIL 20 MG TABLET PO SCH (11:42)
[2018-07-16] MEDS: methylPREDNISolone SOD SUCC PF 125 MG/2 ML VIAL. IV SCH ×2 (11:44→22:40)
[2018-07-16] MEDS: MULTIVIT INFUSN,ADULT 4,VIT K 10 ML, THIAMINE INJ 100 MG, FOLIC ACID INJ 1 MG in IV NOR... IV SCH (11:44)
[2018-07-16] MEDS: metFORMIN 500 MG TABLET PO SCH (11:45)
[2018-07-16] MEDS: ENOXAPARIN 40 MG/0.4 ML SYRINGE. SQ SCH (11:48)
[2018-07-16] MEDS: BUDESONIDE 0.5 MG/2 ML NEBU. NEB SCH ×2 (12:41→19:47)
[2018-07-16] MEDS: IPRATRPIUM/ALBUTEROL 0.5/2.5MG 3 ML NEBU. NEB SCH ×4 (12:41→23:09)
--- NOTE | 2018-07-16 14:37 | NUR ---
SS following for discharge planning. SS reviewed pt chart. Pt is from home and is currently on room air. No discharge needs noted at this time. SS will continue to follow for pending discharge needs.
[2018-07-16] MEDS ORDERED: NON FORMULARY ITEM (Budesonide/Formoterol Fumarate (Symbicort 160-4.5 Mcg Inhaler) 1 PUFF) IH SCH (21:00)
[2018-07-17 03:00] VITALS: BP 140/85
[2018-07-17] MEDS: IPRATRPIUM/ALBUTEROL 0.5/2.5MG 3 ML NEBU. NEB SCH ×6 (03:02→23:37)
[2018-07-17] MEDS: HYDROcodone/APAP 5/325MG 1 TAB TABLET PO PRN ×4 (04:47→23:35)
[2018-07-17] MEDS: LORazepam 1 MG TABLET PO SCH ×3 (05:00→17:05)
[2018-07-17 05:03] LABS: BASO % 0 % (0-3); EOS % 0 % (0-3); HEMATOCRIT 43.2 % (39.0-53.0); HEMOGLOBIN 14.2 g/dL (13.0-17.5); LYMPH # 1.3 x10^3/uL (1.0-4.8); LYMPH % 8 % (24-48); MEAN CORPUSCULAR HEMOGLOBIN 31 pg (25-35); MEAN CORPUSCULAR HGB CONC 33 g/dL (31-37); MEAN CORPUSCULAR VOLUME 94 fL (79-100); MONO # 0.4 x10^3/uL (0.0-1.1); MONO % 2 % (0-9); NEUT # 15.9 x10^3uL (1.8-7.7); NEUT % 90 % (31-73); PLATELET COUNT 247 x10^3/uL (140-400); RED BLOOD COUNT 4.58 x10^6/uL (4.30-5.70); RED CELL DISTRIBUTION WIDTH 13.2 % (11.5-14.5); WHITE BLOOD COUNT 17.6 x10^3/uL (4.0-11.0)
[2018-07-17 05:41] LABS: ALBUMIN 3.3 g/dL (3.4-5.0); ALBUMIN/GLOBULIN RATIO 0.8 (1.0-1.7); CALCIUM 8.9 mg/dL (8.5-10.1); CREATININE 0.9 mg/dL (0.7-1.3); GFR 104.2; TOTAL BILIRUBIN 0.5 mg/dL (0.2-1.0); TOTAL PROTEIN 7.5 g/dL (6.4-8.2)
[2018-07-17] MEDS: methylPREDNISolone SOD SUCC PF 125 MG/2 ML VIAL. IV SCH ×3 (05:54→21:41)
[2018-07-17 06:00] LABS: % BANDS 1 % (0-9); % LYMPHS 9 % (24-48); % MONOS 3 % (0-10); % SEGS 87 % (35-66); PLT ESTIMATE ADEQUATE (ADEQUATE); TOXIC VACUOLATION PRESENT
[2018-07-17 07:00] VITALS: BP 108/98
[2018-07-17] MEDS: metFORMIN 500 MG TABLET PO SCH (08:00)
[2018-07-17] MEDS: BUDESONIDE 0.5 MG/2 ML NEBU. NEB SCH ×2 (08:11→19:41)
[2018-07-17] MEDS: LISINOPRIL 20 MG TABLET PO SCH (09:43)
[2018-07-17] MEDS: MULTIVIT INFUSN,ADULT 4,VIT K 10 ML, THIAMINE INJ 100 MG, FOLIC ACID INJ 1 MG in IV NOR... IV SCH (09:44)
--- NOTE | 2018-07-17 10:53 | PDOC ---
PROGRESS NOTES History of Present Illness History of Present Illness Assessment/Plan Assessment/Plan impression end-stage chronic obstructive pulmonary disease. Continues to smoke acute severe copd exacerbation bronchitis tobacco abuse disorder hx drug abuse with cocaine, marijuana chf dm2 HTN accelerated chronic diastolic CHF ef 55% LEFT foot pain with h/o fx and repaired with screws 07/17 still with wheezes, no distress //discussed smoking cessation need in detail/ d/c cocaine use high risk for relapse plan cvc bed BiPAP support aggressive nebulizer treatment. IV steroids.taper DVT prophylaxis. Discussed with RN Vitals Vitals Vital Signs Date Time Temp Pulse Resp B/P (MAP) Pulse Ox O2 Delivery O2 Flow Rate FiO2 07/17/18 09:43 101 108/98 07/17/18 08:05 96 Room Air 07/17/18 07:00 98.5 24 98.5 Physical Exam General: Alert, Oriented X3, Cooperative, moderate distress Lungs: Clear Extremities: No cyanosis, No edema Labs LABS Laboratory Tests Test 07/17/18 04:25 White Blood Count 17.6 x10^3/uL (4.0-11.0) Red Blood Count 4.58 x10^6/uL (4.30-5.70) Hemoglobin 14.2 g/dL (13.0-17.5) Hematocrit 43.2 % (39.0-53.0) Mean Corpuscular Volume 94 fL (79-100) Mean Corpuscular Hemoglobin 31 pg (25-35) Mean Corpuscular Hemoglobin Concent 33 g/dL (31-37) Red Cell Distribution Width 13.2 % (11.5-14.5) Platelet Count 247 x10^3/uL (140-400) Neutrophils (%) (Auto) 90 % (31-73) Lymphocytes (%) (Auto) 8 % (24-48) Monocytes (%) (Auto) 2 % (0-9) Eosinophils (%) (Auto) 0 % (0-3) Basophils (%) (Auto) 0 % (0-3) Neutrophils # (Auto) 15.9 x10^3uL (1.8-7.7) Lymphocytes # (Auto) 1.3 x10^3/uL (1.0-4.8) Monocytes # (Auto) 0.4 x10^3/uL (0.0-1.1) Eosinophils # (Auto) 0.0 x10^3/uL (0.0-0.7) Basophils # (Auto) 0.0 x10^3/uL (0.0-0.2) Segmented Neutrophils % 87 % (35-66) Band Neutrophils % 1 % (0-9) Lymphocytes % 9 % (24-48) Monocytes % 3 % (0-10) Toxic Vacuolation Present Platelet Estimate Adequate (ADEQUATE) Large Platelets Occ Sodium Level 143 mmol/L (136-145) Potassium Level 4.0 mmol/L (3.5-5.1) Chloride Level 106 mmol/L (98-107) Carbon Dioxide Level 26 mmol/L (21-32) Anion Gap 11 (6-14) Blood Urea Nitrogen 13 mg/dL (8-26) Creatinine 0.9 mg/dL (0.7-1.3) Estimated GFR (Cockcroft-Gault) 104.2 BUN/Creatinine Ratio 14 (6-20) Glucose Level 143 mg/dL (70-99) Calcium Level 8.9 mg/dL (8.5-10.1) Total Bilirubin 0.5 mg/dL (0.2-1.0) Aspartate Amino Transf (AST/SGOT) 17 U/L (15-37) Alanine Aminotransferase (ALT/SGPT) 17 U/L (16-63) Alkaline Phosphatase 67 U/L (46-116) Total Protein 7.5 g/dL (6.4-8.2) Albumin 3.3 g/dL (3.4-5.0) Albumin/Globulin Ratio 0.8 (1.0-1.7) Comment Review of Relevant I have reviewed the following items lacey (where applicable) has been applied. Labs Laboratory Tests Test 07/16/18 05:25 07/16/18 07:08 07/16/18 10:10 07/17/18 04:25 White Blood Count 7.5 x10^3/uL (4.0-11.0) 17.6 x10^3/uL (4.0-11.0) Red Blood Count 4.50 x10^6/uL (4.30-5.70) 4.58 x10^6/uL (4.30-5.70) Hemoglobin 14.2 g/dL (13.0-17.5) 14.2 g/dL (13.0-17.5) Hematocrit 42.3 % (39.0-53.0) 43.2 % (39.0-53.0) Mean Corpuscular Volume 94 fL (79-100) 94 fL (79-100) Mean Corpuscular Hemoglobin 32 pg (25-35) 31 pg (25-35) Mean Corpuscular Hemoglobin Concent 34 g/dL (31-37) 33 g/dL (31-37) Red Cell Distribution Width 13.1 % (11.5-14.5) 13.2 % (11.5-14.5) Platelet Count 234 x10^3/uL (140-400) 247 x10^3/uL (140-400) Neutrophils (%) (Auto) 52 % (31-73) 90 % (31-73) Lymphocytes (%) (Auto) 37 % (24-48) 8 % (24-48) Monocytes (%) (Auto) 9 % (0-9) 2 % (0-9) Eosinophils (%) (Auto) 2 % (0-3) 0 % (0-3) Basophils (%) (Auto) 0 % (0-3) 0 % (0-3) Neutrophils # (Auto) 3.9 x10^3uL (1.8-7.7) 15.9 x10^3uL (1.8-7.7) Lymphocytes # (Auto) 2.8 x10^3/uL (1.0-4.8) 1.3 x10^3/uL (1.0-4.8) Monocytes # (Auto) 0.7 x10^3/uL (0.0-1.1) 0.4 x10^3/uL (0.0-1.1) Eosinophils # (Auto) 0.1 x10^3/uL (0.0-0.7) 0.0 x10^3/uL (0.0-0.7) Basophils # (Auto) 0.0 x10^3/uL (0.0-0.2) 0.0 x10^3/uL (0.0-0.2) Lactic Acid Level 1.3 mmol/L (0.4-2.0) Prothrombin Time 13.2 SEC (11.7-14.0) Prothromb Time International Ratio 1.0 (0.8-1.1) Sodium Level 143 mmol/L (136-145) 143 mmol/L (136-145) Potassium Level 3.8 mmol/L (3.5-5.1) 4.0 mmol/L (3.5-5.1) Chloride Level 104 mmol/L (98-107) 106 mmol/L (98-107) Carbon Dioxide Level 28 mmol/L (21-32) 26 mmol/L (21-32) Anion Gap 11 (6-14) 11 (6-14) Blood Urea Nitrogen 8 mg/dL (8-26) 13 mg/dL (8-26) Creatinine 0.8 mg/dL (0.7-1.3) 0.9 mg/dL (0.7-1.3) Estimated GFR (Cockcroft-Gault) 119.3 104.2 BUN/Creatinine Ratio 10 (6-20) 14 (6-20) Glucose Level 138 mg/dL (70-99) 143 mg/dL (70-99) Calcium Level 8.8 mg/dL (8.5-10.1) 8.9 mg/dL (8.5-10.1) Total Bilirubin 0.5 mg/dL (0.2-1.0) 0.5 mg/dL (0.2-1.0) Direct Bilirubin 0.1 mg/dL (0.0-0.2) Aspartate Amino Transf (AST/SGOT) 19 U/L (15-37) 17 U/L (15-37) Alanine Aminotransferase (ALT/SGPT) 17 U/L (16-63) 17 U/L (16-63) Alkaline Phosphatase 78 U/L (46-116) 67 U/L (46-116) Troponin I Quantitative < 0.017 ng/mL (0.000-0.055) VU-Zpv-[id number]-Type Natriuretic Peptide 58 pg/mL (0-124) Total Protein 7.6 g/dL (6.4-8.2) 7.5 g/dL (6.4-8.2) Albumin 3.4 g/dL (3.4-5.0) 3.3 g/dL (3.4-5.0) Albumin/Globulin Ratio 0.8 (1.0-1.7) 0.8 (1.0-1.7) O2 Saturation 92 % (92-99) Arterial Blood pH 7.40 (7.35-7.45) Arterial Blood pCO2 at Patient Temp 45 mmHg (35-46) Arterial Blood pO2 at Patient Temp 65 mmHg (65-108) Arterial Blood HCO3 27 mmol/L (21-28) Arterial Blood Base Excess 2 mmol/L (-3-3) FiO2 21 Segmented Neutrophils % 87 % (35-66) Band Neutrophils % 1 % (0-9) Lymphocytes % 9 % (24-48) Monocytes % 3 % (0-10) Toxic Vacuolation Present Platelet Estimate Adequate (ADEQUATE) Large Platelets Occ Laboratory Tests Test 07/17/18 04:25 White Blood Count 17.6 x10^3/uL (4.0-11.0) Red Blood Count 4.58 x10^6/uL (4.30-5.70) Hemoglobin 14.2 g/dL (13.0-17.5) Hematocrit 43.2 % (39.0-53.0) Mean Corpuscular Volume 94 fL (79-100) Mean Corpuscular Hemoglobin 31 pg (25-35) Mean Corpuscular Hemoglobin Concent 33 g/dL (31-37) Red Cell Distribution Width 13.2 % (11.5-14.5) Platelet Count 247 x10^3/uL (140-400) Neutrophils (%) (Auto) 90 % (31-73) Lymphocytes (%) (Auto) 8 % (24-48) Monocytes (%) (Auto) 2 % (0-9) Eosinophils (%) (Auto) 0 % (0-3) Basophils (%) (Auto) 0 % (0-3) Neutrophils # (Auto) 15.9 x10^3uL (1.8-7.7) Lymphocytes # (Auto) 1.3 x10^3/uL (1.0-4.8) Monocytes # (Auto) 0.4 x10^3/uL (0.0-1.1) Eosinophils # (Auto) 0.0 x10^3/uL (0.0-0.7) Basophils # (Auto) 0.0 x10^3/uL (0.0-0.2) Segmented Neutrophils % 87 % (35-66) Band Neutrophils % 1 % (0-9) Lymphocytes % 9 % (24-48) Monocytes % 3 % (0-10) Toxic Vacuolation Present Platelet Estimate Adequate (ADEQUATE) Large Platelets Occ Sodium Level 143 mmol/L (136-145) Potassium Level 4.0 mmol/L (3.5-5.1) Chloride Level 106 mmol/L (98-107) Carbon Dioxide Level 26 mmol/L (21-32) Anion Gap 11 (6-14) Blood Urea Nitrogen 13 mg/dL (8-26) Creatinine 0.9 mg/dL (0.7-1.3) Estimated GFR (Cockcroft-Gault) 104.2 BUN/Creatinine Ratio 14 (6-20) Glucose Level 143 mg/dL (70-99) Calcium Level 8.9 mg/dL (8.5-10.1) Total Bilirubin 0.5 mg/dL (0.2-1.0) Aspartate Amino Transf (AST/SGOT) 17 U/L (15-37) Alanine Aminotransferase (ALT/SGPT) 17 U/L (16-63) Alkaline Phosphatase 67 U/L (46-116) Total Protein 7.5 g/dL (6.4-8.2) Albumin 3.3 g/dL (3.4-5.0) Albumin/Globulin Ratio 0.8 (1.0-1.7) Microbiology 07/16/18 Blood Culture - Preliminary, Resulted NO GROWTH AFTER 1 DAY Medications Current Medications Methylprednisolone Sodium Succinate (SOLU-Medrol 125MG VIAL) 125 mg 1X ONCE IV Last administered on 07/16/18at 05:55; Start 07/16/18 at 05:30; Stop 07/16/18 at 05:31; Status DC Albuterol Sulfate (Ventolin Neb Soln) 10 mg 1X ONCE CONT NEB Last administered on 07/16/18at 06:01; Start 07/16/18 at 05:30; Stop 07/16/18 at 05:31 ; Status DC Albuterol/ Ipratropium (Duoneb) 3 ml RTQID NEB ; Start 07/16/18 at 08:00; Stop 07/16/18 at 10:10; Status DC Doxycycline Hyclate (Vibra-Tab) 100 mg 1X ONCE PO Last administered on at 07:53; Start 07/16/18 at 06:00; Stop 07/16/18 at 06:01; Status DC Albuterol/ Ipratropium (Duoneb) 3 ml Q4HRS NEB Last administered on 07/17/18 08:11; Start 07/16/18 at 12:00 Budesonide (Pulmicort) 0.5 mg RTBID NEB Last administered on 07/17/18 08:11; Start 07/16/18 at 11:00 Methylprednisolone Sodium Succinate (SOLU-Medrol 125MG VIAL) 60 mg Q8HRS IV Last administered on 07/17/18 05:54; Start 07/16/18 at 11:00 Enoxaparin Sodium (Lovenox 40mg Syringe) 40 mg Q24H SQ Last administered on 11:48; Start 07/16/18 at 11:00 Acetaminophen/ Hydrocodone Bitart (Lortab 5/325) 1 tab PRN Q6HRS PRN PO PAIN Last administered on 07/17/18 04:47; Start 07/16/18 at 10:45 Lisinopril (Prinivil) 40 mg DAILY PO Last administered on 07/17/18 09:43; Start 07/16/18 at 11:30 Non-Formulary Medication (Budesonide/ Formoterol Fumarate (Symbicort 160-4.5 Mcg Inhaler)) 1 puff BID IH ; Start 07/16/18 at 21:00; Stop 07/16/18 at 21:00; Status DC Metformin HCl (Glucophage) 500 mg DAILYWBKFT PO Last administered on 07/16/18 11:45; Start 07/16/18 at 11:30 Multivitamins 10 ml/Thiamine HCl 100 mg/Folic Acid 1 mg/Sodium Chloride 1,011.2 ml @ 100 mls/ hr DAILY IV Last administered on 07/17/18 09:44; Start at 11:30; Stop 07/20/18 at 19:07 Lorazepam (Ativan) 2 mg Q6H PO Last administered on 07/16/18 16:42; Start 03/26 at 11:00; Stop 07/17/18 at 17:01 Active Scripts Active Prednisone 50 Mg Tablet 50 Mg PO DAILY 7 Days Ventolin Hfa Inhaler (Albuterol Sulfate) 18 Gm Hfa.aer.ad 2 Puff INH Q4HRS Prednisone 20 Mg Tablet 40 Mg PO DAILY Lisinopril 40 Mg Tablet 40 Mg PO DAILY 30 Days Doxycycline Hyclate 100 Mg Tablet 100 Mg PO BID 7 Days [place] 5-325 Tablet (Acetaminophen/Hydrocodone Bitart) 1 Each Tablet 1 Tab PO Q4- 6HRS PRN Spiriva (Tiotropium [place]) 18 Mcg Cap.w.dev 1 Cap IH DAILY Symbicort 160-4.5 Mcg Inhaler (Budesonide/Formoterol Fumarate) 10.2 Gm Hfa.aer.ad 1 Puff IH BID 1 Days Reported Metformin Hcl 500 Mg Tablet 500 Mg PO DAILY Vitals/I & O Vital Sign - Last 24 Hours 07/16/18 07/16/18 07/16/18 07/16/18 11:30 11:42 11:47 12:00 Temp 97.9 97.9 Pulse 118 Resp 28 B/P (MAP) 161/104 184/106 (132) Pulse Ox 98 96 97 O2 Delivery BiPAP/CPAP Room Air Room Air 07/16/18 07/16/18 07/16/18 07/16/18 12:41 13:30 16:00 16:53 Temp 97.4 97.4 Pulse 106 Resp 27 B/P (MAP) 136/103 (114) Pulse Ox 96 98 93 95 O2 Delivery Room Air BiPAP/CPAP Room Air Room Air 07/16/18 07/16/18 07/16/18 07/16/18 19:00 19:47 19:49 20:00 Temp 98.0 98.0 Pulse 109 Resp 25 B/P (MAP) 153/105 (121) Pulse Ox 93 95 95 O2 Delivery Room Air Room Air Room Air Room Air 07/16/18 07/16/18 07/17/18 07/17/18 23:00 23:10 03:00 04:47 Temp 98.0 98.0 98.0 98.0 Pulse 105 96 Resp 23 21 20 B/P (MAP) 155/99 (117) 140/85 (103) Pulse Ox 95 94 95 O2 Delivery Room Air Room Air Room Air Room Air 07/17/18 07/17/18 07/17/18 07:00 08:05 09:43 Temp 98.5 98.5 Pulse 101 101 Resp 24 B/P (MAP) 108/98 (101) 108/98 Pulse Ox 94 96 O2 Delivery Room Air Room Air Intake and Output 07/16/18 07/16/18 07/17/18 14:59 22:59 06:59 Intake Total 300 ml 1001 ml 300 ml Balance 300 ml 1001 ml 300 ml PRISCILLA GAR MD Jul 17, 2018 10:53
[2018-07-17 11:00] VITALS: BP 156/101
[2018-07-17] MEDS: ENOXAPARIN 40 MG/0.4 ML SYRINGE. SQ SCH (11:05)
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
[2018-07-17 14:53] VITALS: BP 181/106
[2018-07-17 19:00] VITALS: BP 162/107
--- NOTE | 2018-07-17 21:42 | NUR ---
Pt removed IV accidental, refusing IV placement due to leaving tomorrow. IV medication non administered.
[2018-07-17 23:00] VITALS: BP 158/110
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
[2018-07-18] MEDS: IPRATRPIUM/ALBUTEROL 0.5/2.5MG 3 ML NEBU. NEB SCH ×3 (03:55→11:23)
--- NOTE | 2018-07-18 03:56 | NUR ---
Spoke with Dr. Yen regarding pt noncompliance with hospital protocol of staying in the building. Dr. Yen gave okay to remove tele monitor and if pt leaves building again he can not come back in unless seen through the ER triage area.
[2018-07-18] MEDS: methylPREDNISolone SOD SUCC PF 125 MG/2 ML VIAL. IV SCH (06:00)
[2018-07-18 07:00] VITALS: BP 175/98
[2018-07-18] MEDS: BUDESONIDE 0.5 MG/2 ML NEBU. NEB SCH (07:13)
[2018-07-18] MEDS: metFORMIN 500 MG TABLET PO SCH (07:54)
[2018-07-18] MEDS: LISINOPRIL 20 MG TABLET PO SCH (07:54)
[2018-07-18] MEDS: HYDROcodone/APAP 5/325MG 1 TAB TABLET PO PRN (07:55)
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
[2018-07-18] MEDS ORDERED: amLODIPine BESYLATE 5 MG TABLET PO SCH (09:00)
[2018-07-18 11:25] VITALS: BP 174/129
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
--- NOTE | 2018-07-18 14:00 | NUR ---
discharge instructions given with scripts of prednisone dose pack, symbicort, and lortab. pt verbalized understanding. pt discharged to home
--- NOTE | 2018-07-18 21:28 | DS ---
DATE OF DISCHARGE: 07/18/2018 ADMISSION DIAGNOSIS: Respiratory failure secondary to chronic obstructive pulmonary disease. DISCHARGE DIAGNOSIS: Resolving respiratory failure. HOSPITAL COURSE: The patient is a pleasant 58-year-old male who presented with respiratory failure secondary to chronic obstructive pulmonary disease. He continues to smoke. I have admitted him before for the same thing. Basically, we admitted the patient. We gave him IV steroids, breathing treatments, oxygen, empiric antibiotics. Consulted Pulmonology, did some physical therapy, continued home meds. This morning, I saw and examined him, he was doing better, he requested to go home. We planned to discharge with close outpatient followup. I did give him prescriptions. DISPOSITION: Home. ACTIVITY: As tolerated. DIET: Low sodium. MEDICATIONS: Please see the MRAD. TOTAL TIME ON DISCHARGE: 31 minutes. MURIEL LARRY DO DR: LUIS ALBERTO/moriah JOB#: [id number] / [id number]
[2018-08-30] MEDS ORDERED: AMLO5TAB10 PO (12:04)
[2018-09-13] MEDS ORDERED: VENTOLIN HFA18 GM INH (09:55)
[2018-09-13] MEDS ORDERED: HYDR-2769 PO (09:55)
== END 2018-07-18 14:00 | disposition home or self-care (01) | DRG 189 ==
LOC: ER 05:01 → 1 WEST ICU 05:10 → CVICU 07-17 08:20
PROVIDERS: ADMIT Internal Medicine; ATTEND Internal Medicine
PROC: 5A09357 Assistance with Respiratory Ventilation, Less than 24 Consecutive Hours, Continuous Positive Airway Pressure (ICD-10-PCS; principal; 2018-07-16)
DX: J96.20 Acute and chronic respiratory failure, unspecified whether with hypoxia or hypercapnia (principal); I50.32 Chronic diastolic (congestive) heart failure; J44.1 Chronic obstructive pulmonary disease with (acute) exacerbation; I11.0 Hypertensive heart disease with heart failure; E11.9 Type 2 diabetes mellitus without complications; I25.10 Atherosclerotic heart disease of native coronary artery without angina pectoris; F10.10 Alcohol abuse, uncomplicated; M19.90 Unspecified osteoarthritis, unspecified site; F17.210 Nicotine dependence, cigarettes, uncomplicated; Z82.5 Family history of asthma and other chronic lower respiratory diseases; F12.10 Cannabis abuse, uncomplicated; Z82.49 Family history of ischemic heart disease and other diseases of the circulatory system
CPT/HCPCS: 36415; 36600; 71045; 80053; 82248; 82805; 83605; 83880; 84484; 85007; 85025; 85610; 87040; 93005; 94640; 94644; 94660; 94760; 96374; J1650; J2930; J7030; J7613; J7620; J7626; 99285-25

== ENCOUNTER 2018-08-28 18:04 | Inpatient (IN) | payer OTHER ==
[~2018-08-28] VITALS: Ht 165.1 cm; Wt 72.1 kg
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
[2018-08-28] MEDS ORDERED: IV NORMAL SALINE 1000ML BAG 1,000 ML IV ONE ×2 (18:45→21:45)
[2018-08-28 18:58] LABS: AMPHETAMINE/METHAMPHETAMINE NEG (NEG); BARBITURATES NEG (NEG); BENZODIAZEPINES NEG (NEG); CANNABINOIDS NEG (NEG); COCAINE POS (NEG); METHADONE NEG (NEG); OPIATES NEG (NEG); PHENCYCLIDINE NEG (NEG)
[2018-08-28 20:25] LABS: CALCIUM 9.1 mg/dL (8.5-10.1); CREATININE 0.8 mg/dL (0.7-1.3); GFR 119.3; POTASSIUM 3.6 mmol/L (3.5-5.1)
[2018-08-28 20:30] LABS: SALIC < 2.8 mg/dL (2.8-20.0)
[2018-08-28 20:31] LABS: ACETAMIN < 2 mcg/ml (10-30); ETHANOL < 10 mg/dL (0-10)
[2018-08-28 20:34] LABS: ALBUMIN 3.8 g/dL (3.4-5.0); ALBUMIN/GLOBULIN RATIO 0.9 (1.0-1.7); TOTAL BILIRUBIN 1.4 mg/dL (0.2-1.0); TOTAL PROTEIN 7.9 g/dL (6.4-8.2)
[2018-08-28 20:55] LABS: BASO # 0.1 x10^3/uL (0.0-0.2); BASO % 1 % (0-3); EOS # 0.1 x10^3/uL (0.0-0.7); EOS % 1 % (0-3); HEMATOCRIT 43.5 % (39.0-53.0); HEMOGLOBIN 14.7 g/dL (13.0-17.5); LYMPH # 3.1 x10^3/uL (1.0-4.8); LYMPH % 36 % (24-48); MEAN CORPUSCULAR HEMOGLOBIN 31 pg (25-35); MEAN CORPUSCULAR HGB CONC 34 g/dL (31-37); MEAN CORPUSCULAR VOLUME 92 fL (79-100); MONO % 11 % (0-9); NEUT # 4.3 x10^3uL (1.8-7.7); NEUT % 51 % (31-73); PLATELET COUNT 247 x10^3/uL (140-400); RED BLOOD COUNT 4.75 x10^6/uL (4.30-5.70); RED CELL DISTRIBUTION WIDTH 13.1 % (11.5-14.5); WHITE BLOOD COUNT 8.5 x10^3/uL (4.0-11.0)
[2018-08-28 21:44] LABS: BILIRUBIN,URINE NEGATIVE (NEG); CLARITY,URINE CLEAR; COLOR,URINE YELLOW; NITRITE,URINE NEGATIVE (NEG); PH,URINE 5.5; PROTEIN,URINE NEGATIVE (NEG-TRACE); UROBILINOGEN,URINE 0.2 mg/dL (0.2 mg/dL)
[2018-08-28 21:52] LABS: SQUAMOUS EPITHELIAL CELL,UR FEW /LPF
[2018-08-28 21:53] LABS: BACTERIA,URINE 0 /HPF (0-FEW)
[2018-08-28 23:46] VITALS: BP 154/98
[2018-08-28] MEDS: IV NORMAL SALINE 1000ML BAG 1,000 ML IV SCH (23:47)
[2018-08-29] MEDS ORDERED: HALOPERIDOL LACTATE 5 MG/ML VIAL. IVP PRN (00:15)
[2018-08-29] MEDS ORDERED: diphenhydrAMINE 50 MG/ML VIAL IVP PRN (00:15)
[2018-08-29] MEDS ORDERED: cloNIDine HCL 0.1 MG TABLET PO PRN (00:15)
[2018-08-29] MEDS ORDERED: ALBUTEROL SULFATE 2.5 MG/3 ML NEBU. NEB PRN (00:30)
[2018-08-29] MEDS: HYDROcodone/APAP 5/325MG 1 TAB TABLET PO PRN ×3 (00:31→20:48)
[2018-08-29] MEDS: LORazepam 1 MG TABLET PO PRN ×4 (00:32→20:48)
[2018-08-29 03:00] VITALS: BP 126/87
[2018-08-29] MEDS ORDERED: NON FORMULARY ITEM (Albuterol Sulfate (Ventolin Hfa Inhaler) 2 PUFF) INH SCH (04:00)
[2018-08-29 04:46] LABS: ALBUMIN 3.2 g/dL (3.4-5.0); DIRECT BILIRUBIN 0.3 mg/dL (0.0-0.2); TOTAL BILIRUBIN 1.7 mg/dL (0.2-1.0); TOTAL PROTEIN 6.8 g/dL (6.4-8.2)
[2018-08-29 07:00] VITALS: BP 140/81
[2018-08-29] MEDS: IPRATRPIUM/ALBUTEROL 0.5/2.5MG 3 ML NEBU. NEB SCH ×3 (07:31→15:57)
--- NOTE | 2018-08-29 07:33 | EKG ---
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
[2018-08-29] MEDS ORDERED: BUDESONIDE 0.5 MG/2 ML NEBU. NEB SCH (08:00)
[2018-08-29] MEDS: predniSONE 20 MG TABLET PO SCH (08:11)
[2018-08-29] MEDS: MULTIVIT INFUSN,ADULT 4,VIT K 10 ML, THIAMINE INJ 100 MG, FOLIC ACID INJ 1 MG in IV NOR... IV SCH (08:11)
[2018-08-29] MEDS: IV NORMAL SALINE 1000ML BAG 1,000 ML IV SCH ×2 (08:11→17:39)
[2018-08-29] MEDS: LISINOPRIL 20 MG TABLET PO SCH (08:12)
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
[2018-08-29] MEDS ORDERED: THIAMINE INJ 100 MG in IV DEXTROSE 5% 50 ML IV SCH (09:00)
[2018-08-29] MEDS ORDERED: QUEtiapine 100 MG TABLET. PO SCH (09:00)
[2018-08-29] MEDS ORDERED: NON FORMULARY ITEM (Budesonide/Formoterol Fumarate (Symbicort 160-4.5 Mcg Inhaler) 1 PUFF) IH SCH (09:00)
[2018-08-29] MEDS ORDERED: FOLIC ACID 1 MG TABLET. PO SCH (09:00)
[2018-08-29] MEDS ORDERED: THIAMINE IM 200 MG/2 ML VIAL. IM SCH (09:00)
[2018-08-29] MEDS ORDERED: NON FORMULARY ITEM (Tiotropium Bromide (Spiriva) 1 CAP) IH SCH (09:00)
[2018-08-29] MEDS ORDERED: MULTIVITAMIN with MINERAL TABLET. PO SCH (09:00)
[2018-08-29] MEDS: LORazepam 1 MG TABLET PO SCH ×2 (09:16→20:48)
[2018-08-29 11:00] VITALS: BP 127/83
--- NOTE | 2018-08-29 13:39 | NUR ---
Pt was not appropriate for PAT team evaluation this morning. Jenni will come to see pt tomorrow once pt is more alert. LAVERNE RED.
[2018-08-29 15:00] VITALS: BP 124/92
[2018-08-29 19:00] VITALS: BP 134/82
[2018-08-29 23:00] VITALS: BP 151/92
[2018-08-30] MEDS: HYDROcodone/APAP 5/325MG 1 TAB TABLET PO PRN ×3 (01:45→14:34)
[2018-08-30] MEDS: LORazepam 1 MG TABLET PO PRN ×5 (01:45→18:03)
[2018-08-30 03:00] VITALS: BP 159/90
[2018-08-30 07:45] VITALS: BP 164/104
[2018-08-30] MEDS: LORazepam 1 MG TABLET PO SCH (08:31)
[2018-08-30] MEDS: predniSONE 20 MG TABLET PO SCH (08:32)
[2018-08-30] MEDS: LISINOPRIL 20 MG TABLET PO SCH (08:32)
[2018-08-30] MEDS: MULTIVIT INFUSN,ADULT 4,VIT K 10 ML, THIAMINE INJ 100 MG, FOLIC ACID INJ 1 MG in IV NOR... IV SCH (08:36)
--- NOTE | 2018-08-30 11:14 | PDOC ---
PROGRESS NOTES Chief Complaint Chief Complaint suicidal ideation major depressive episode on bipolar and schizotypal or schizophrenia substance abuse, "large amount of cocaine" EtOH abuse History of Present Illness History of Present Illness more alert, was too sedated yesterday for PAT team eval walking , will try to get placemtn in psych facility or revisit the SI, he does seem much different now that he is sober Vitals Vitals Vital Signs Date Time Temp Pulse Resp B/P (MAP) Pulse Ox O2 Delivery O2 Flow Rate FiO2 08/30/18 08:32 91 164/104 08/30/18 07:45 97.8 18 97 Room Air 97.8 08/30/18 06:51 2.0 Physical Exam General: Alert, Oriented X3, Cooperative, No acute distress, mild distress Lungs: Other Abdomen: Normal bowel sounds, Soft Extremities: No edema, Normal pulses Skin: No rashes, No significant lesion Review of Systems Review of Systems no n,v.d Comment Review of Relevant I have reviewed the following items lacey (where applicable) has been applied. Labs Laboratory Tests Test 08/28/18 18:44 08/28/18 19:20 08/28/18 20:08 08/28/18 20:45 Urine Collection Type Unknown Urine Color Yellow Urine Clarity Clear Urine pH 5.5 Urine Specific [place] 1.010 Urine Protein Negative mg/dL (NEG-TRACE) Urine Glucose (UA) Negative mg/dL (NEG) Urine Ketones (Stick) Negative mg/dL (NEG) Urine Blood Small (NEG) Urine Nitrite Negative (NEG) Urine Bilirubin Negative (NEG) Urine Urobilinogen Dipstick 0.2 mg/dL (0.2 mg/dL) Urine Leukocyte Esterase Negative (NEG) Urine RBC 1-2 /HPF (0-2) Urine WBC 1-4 /HPF (0-4) Urine Squamous Epithelial Cells Few /LPF Urine Bacteria 0 /HPF (0-FEW) Urine Mucus Slight /LPF Urine Opiates Screen Neg (NEG) Urine Methadone Screen Neg (NEG) Urine Barbiturates Neg (NEG) Urine Phencyclidine Screen Neg (NEG) Urine Amphetamine/Methamphetamine Neg (NEG) Urine Benzodiazepines Screen Neg (NEG) Urine Cocaine Screen Pos (NEG) Urine Cannabinoids Screen Neg (NEG) Urine Ethyl Alcohol Pos (NEG) Sodium Level 139 mmol/L (136-145) Potassium Level 3.6 mmol/L (3.5-5.1) Chloride Level 101 mmol/L (98-107) Carbon Dioxide Level 28 mmol/L (21-32) Anion Gap 10 (6-14) Blood Urea Nitrogen 8 mg/dL (8-26) Creatinine 0.8 mg/dL (0.7-1.3) Estimated GFR (Cockcroft-Gault) 119.3 BUN/Creatinine Ratio 10 (6-20) Glucose Level 90 mg/dL (70-99) Calcium Level 9.1 mg/dL (8.5-10.1) Total Bilirubin 1.4 mg/dL (0.2-1.0) Aspartate Amino Transf (AST/SGOT) 34 U/L (15-37) Alanine Aminotransferase (ALT/SGPT) 18 U/L (16-63) Alkaline Phosphatase 72 U/L (46-116) Total Protein 7.9 g/dL (6.4-8.2) Albumin 3.8 g/dL (3.4-5.0) Albumin/Globulin Ratio 0.9 (1.0-1.7) Troponin I Quantitative < 0.017 ng/mL (0.000-0.055) Salicylates Level < 2.8 mg/dL (2.8-20.0) Salicylate Last Dose Date Unknown Salicylate Last Dose Time Unknown Acetaminophen Level < 2 mcg/ml (10-30) Acetaminophen Last Dose Date Unknown Acetaminophen Last Dose Time Unknown Ethyl Alcohol Level < 10 mg/dL (0-10) White Blood Count 8.5 x10^3/uL (4.0-11.0) Red Blood Count 4.75 x10^6/uL (4.30-5.70) Hemoglobin 14.7 g/dL (13.0-17.5) Hematocrit 43.5 % (39.0-53.0) Mean Corpuscular Volume 92 fL (79-100) Mean Corpuscular Hemoglobin 31 pg (25-35) Mean Corpuscular Hemoglobin Concent 34 g/dL (31-37) Red Cell Distribution Width 13.1 % (11.5-14.5) Platelet Count 247 x10^3/uL (140-400) Neutrophils (%) (Auto) 51 % (31-73) Lymphocytes (%) (Auto) 36 % (24-48) Monocytes (%) (Auto) 11 % (0-9) Eosinophils (%) (Auto) 1 % (0-3) Basophils (%) (Auto) 1 % (0-3) Neutrophils # (Auto) 4.3 x10^3uL (1.8-7.7) Lymphocytes # (Auto) 3.1 x10^3/uL (1.0-4.8) Monocytes # (Auto) 1.0 x10^3/uL (0.0-1.1) Eosinophils # (Auto) 0.1 x10^3/uL (0.0-0.7) Basophils # (Auto) 0.1 x10^3/uL (0.0-0.2) Test 08/29/18 03:30 Total Bilirubin 1.7 mg/dL (0.2-1.0) Direct Bilirubin 0.3 mg/dL (0.0-0.2) Aspartate Amino Transf (AST/SGOT) 27 U/L (15-37) Alanine Aminotransferase (ALT/SGPT) 15 U/L (16-63) Alkaline Phosphatase 66 U/L (46-116) Total Protein 6.8 g/dL (6.4-8.2) Albumin 3.2 g/dL (3.4-5.0) Medications Current Medications Lorazepam (Ativan) 1 mg 1X ONCE IV Last administered on 08/28/18at 19:26; Start 08/28/18 at 18:45; Stop 08/28/18 at 18:46; Status DC Sodium Chloride 1,000 ml @ 1,000 mls/hr 1X ONCE IV Last administered on 08/28/18at 19:25; Start 08/28/18 at 18:45; Stop 08/28/18 at 19:44; Status DC Lorazepam (Ativan) 1 mg 1X ONCE IV Last administered on 08/28/18at 19:45; Start 08/28/18 at 19:45; Stop 08/28/18 at 19:46; Status DC Sodium Chloride 1,000 ml @ 1,000 mls/hr 1X ONCE IV Last administered on 08/28/18at 21:40; Start 08/28/18 at 21:45; Stop 08/28/18 at 22:44; Status DC Sodium Chloride 1,000 ml @ 100 mls/hr Q10H IV Last administered on 08/29/18at 08:11; Start 08/28/18 at 22:00; Stop 08/29/18 at 22:00; Status DC Acetaminophen/ Hydrocodone Bitart (Lortab 5/325) 1 tab PRN Q4HRS PRN PO PAIN Last administered on 08/30/18at 05:51; Start 08/29/18 at 00:15 Lisinopril (Prinivil) 40 mg DAILY PO Last administered on 08/30/18at 08:32; Start 08/29/18 at 09:00 Prednisone (Prednisone) 40 mg DAILY PO Last administered on 08/30/18at 08:32; Start 08/29/18 at 09:00 Non-Formulary Medication (Albuterol Sulfate (Ventolin Hfa Inhaler)) 2 puff Q4HRS INH ; Start 08/29/18 at 04:00; Status UNV Non-Formulary Medication (Budesonide/ Formoterol Fumarate (Symbicort 160-4.5 Mcg Inhaler)) 1 puff BID IH ; Start 08/29/18 at 09:00; Status UNV Non-Formulary Medication (Tiotropium [place] (Spiriva)) 1 cap DAILY IH ; Start 08/29/18 at 09:00; Status UNV Multivitamins 10 ml/Thiamine HCl 100 mg/Folic Acid 1 mg/Sodium Chloride 1,011.2 ml @ 100 mls/ hr DAILY IV Last administered on 08/30/18at 08:36; Start 08/29/18 at 09:00; Stop 09/02/18 at 19:07 Multivitamins (Thera M Plus) 1 tab DAILY PO ; Start 08/29/18 at 09:00; Status UNV Folic Acid (Folic Acid) 1 mg DAILY PO ; Start 08/29/18 at 09:00; Status UNV Thiamine HCl 100 mg DAILY IM ; Start 08/29/18 at 09:00; Stop 09/03/18 at 08:59; Status UNV Thiamine HCl 100 mg/Dextrose 51 ml @ 100 mls/hr DAILY IV ; Start 08/29/18 at 09:00; Stop 09/02/18 at 09:31; Status UNV Lorazepam (Ativan) 4 mg PRN Q1HR PRN PO For CIWA 8-14 Last administered on 08/30/18at 10:02; Start 08/29/18 at 00:15 Lorazepam (Ativan) 8 mg PRN Q1HR PRN PO For CIWA 15 or greater Last administered on 08/30/18at 03:09; Start 08/29/18 at 00:15 Lorazepam (Ativan) 2 mg PRN Q1HR PRN IV For CIWA 8-14; Start 08/29/18 at 00:15 Lorazepam (Ativan) 4 mg PRN Q1HR PRN IV For CIWA 15 or greater; Start 08/29/18 at 00:15 Haloperidol Lactate (Haldol Inj) 5 mg PRN Q4HRS PRN IVP Hallucinatns,Confusn,Delirium; Start 08/29/18 at 00:15 Diphenhydramine HCl (Benadryl) 25 mg PRN Q15MIN PRN IVP EPS symptoms 2'Haldol admin; Start 08/29/18 at 00:15 Clonidine HCl (Catapres) 0.1 mg PRN Q1HR PRN PO SBP > 180 or DBP > 100, MRX3; Start 08/29/18 at 00:15 Albuterol Sulfate (Ventolin Neb Soln) 2.5 mg PRN Q4HRS PRN NEB SHORTNESS OF BREATH; Start 08/29/18 at 00:30 Budesonide (Pulmicort) 0.5 mg RTBID NEB Last administered on 08/29/18at 07:31; Start 08/29/18 at 08:00; Stop 08/29/18 at 15:59; Status DC Albuterol/ Ipratropium (Duoneb) 3 ml RTQID NEB Last administered on 08/29/18at 15:57; Start 08/29/18 at 08:00; Stop 08/29/18 at 15:59; Status DC Lorazepam (Ativan) 1 mg BID PO Last administered on 08/30/18at 08:31; Start 08/29/18 at 09:00 Quetiapine Fumarate (SEROquel) 100 mg BID PO Last administered on 08/29/18at 09:16; Start 08/29/18 at 09:00; Stop 08/29/18 at 12:13; Status DC Active Scripts Active Prednisone 50 Mg Tablet 50 Mg PO DAILY 7 Days Ventolin Hfa Inhaler (Albuterol Sulfate) 18 Gm Hfa.aer.ad 2 Puff INH Q4HRS Prednisone 20 Mg Tablet 40 Mg PO DAILY Lisinopril 40 Mg Tablet 40 Mg PO DAILY 30 Days Doxycycline Hyclate 100 Mg Tablet 100 Mg PO BID 7 Days [place] 5-325 Tablet (Acetaminophen/Hydrocodone Bitart) 1 Each Tablet 1 Tab PO Q4- 6HRS PRN Spiriva (Tiotropium [place]) 18 Mcg Cap.w.dev 1 Cap IH DAILY Symbicort 160-4.5 Mcg Inhaler (Budesonide/Formoterol Fumarate) 10.2 Gm Hfa.aer.ad 1 Puff IH BID 1 Days Reported Metformin Hcl 500 Mg Tablet 500 Mg PO DAILY Vitals/I & O Vital Sign - Last 24 Hours 08/29/18 08/29/18 08/29/18 08/29/18 11:36 15:00 15:58 19:00 Temp 98.9 97.9 98.9 97.9 Pulse 119 115 Resp 18 20 B/P (MAP) 124/92 (103) 134/82 (99) Pulse Ox 95 93 O2 Delivery Room Air Room Air Room Air Room Air 08/29/18 08/29/18 08/29/18 08/30/18 20:00 20:48 23:00 01:45 Temp 98.1 98.1 Pulse 103 Resp 20 B/P (MAP) 151/92 (111) Pulse Ox 98 O2 Delivery Room Air Room Air Room Air Room Air 08/30/18 08/30/18 08/30/18 08/30/18 03:00 05:51 06:51 07:45 Temp 98.3 97.8 98.3 97.8 Pulse 94 91 Resp 20 20 18 B/P (MAP) 159/90 (113) 164/104 (124) Pulse Ox 96 96 97 O2 Delivery Room Air Room Air Room Air Room Air O2 Flow Rate 2.0 08/30/18 08:32 Pulse 91 B/P (MAP) 164/104 Intake and Output 08/29/18 08/29/18 08/30/18 14:59 22:59 06:59 Intake Total 180 ml 1871.2 ml 300 ml Output Total 250 ml 300 ml Balance -70 ml 1571.2 ml 300 ml LALY VAZQUEZ MD Aug 30, 2018 11:14
[2018-08-30 11:15] VITALS: BP 167/97
[2018-08-30] MEDS ORDERED: amLODIPine BESYLATE 5 MG TABLET PO SCH (11:15)
[2018-08-30] MEDS ORDERED: AMLO5TAB10 PO (12:04)
--- NOTE | 2018-08-30 12:06 | SNU/HH DC ---
DISCHARGE ORDERS DISCHARGE INFORMATION: DISCHARGE DATE: Aug 30, 2018 CONDITION ON DISCHARGE: Stable CODE STATUS: Code Status: Full POST DISCHARGE ORDERS: ACTIVITY ORDERS: Activity as tolerated WEIGHT BEARING STATUS: As tolerated DIET AFTER DISCHARGE: ADA CHECKS AFTER DISCHARGE: CHECKS AFTER DISCHARGE: Check blood press - daily, Check blood sugar, ac/hs, Check your Temp as needed FOLLOW-UP: PHYSICIAN FOLLOW-UP: psychiatric care, acute for suicidality TREATMENT/EQUIPMENT ORDERS: ADAPTIVE EQUIPMENT NEEDED: None DISCHARGE MEDICATIONS: Home Meds Active Scripts Amlodipine Besylate (AMLODIPINE BESYLATE) 5 Mg Tablet, 2.5 MG PO DAILY for hypertension, #30 TAB Prov:LALY VAZQUEZ MD 08/30/18 Prednisone (PREDNISONE) 50 Mg Tablet, 50 MG PO DAILY for 7 Days, #7 TAB Prov:ELLY LANCE DO 05/13/18 Albuterol Sulfate (VENTOLIN HFA INHALER) 18 Gm Hfa.aer.ad, 2 PUFF INH Q4HRS for FOR ASTHMA, #1 INHALER 0 Refills Prov:ELLY LANCE DO 05/13/18 Prednisone (PREDNISONE) 20 Mg Tablet, 40 MG PO DAILY for copd, #20 TAB Prov:DONNY ESTRADA MD 03/29/18 Lisinopril (LISINOPRIL) 40 Mg Tablet, 40 MG PO DAILY for htn for 30 Days, #30 TAB Prov:DONNY ESTRADA MD 03/29/18 Doxycycline Hyclate (DOXYCYCLINE HYCLATE) 100 Mg Tablet, 100 MG PO BID for copd for 7 Days, #14 TAB Prov:DONNY ESTRADA MD 03/29/18 Hydrocodone/Apap 5-325 ([place] 5-325 TABLET) 1 Each Tablet, 1 TAB PO Q4-6HRS PRN for PAIN, #15 TAB Prov:DONNY ESTRADA MD 03/29/18 Tiotropium [place] (SPIRIVA) 18 Mcg Cap.w.dev, 1 CAP IH DAILY, #30 CAP 3 Refills Prov:TAURUS SMITH MD 02/01/17 Budesonide/Formoterol Fumarate (SYMBICORT 160-4.5 MCG INHALER) 10.2 Gm Hfa.aer.ad, 1 PUFF IH BID for 1 Day, INHALER Prov:TAURUS SMITH MD 02/01/17 Reported Medications Metformin Hcl (METFORMIN HCL) 500 Mg Tablet, 500 MG PO DAILY for ANTI-DIABETIC, TAB 0 Refills 09/13/17 LALY VAZQEUZ MD Aug 30, 2018 12:06
--- NOTE | 2018-08-30 12:09 | PDOC3 ---
Discharge Summary Visit Information Date of Admission: Aug 28, 2018 Date of Discharge: Aug 30, 2018 Admitting Diagnosis: acute toxic encephalopathy Final Diagnosis suicidal ideation major depressive episode substance abuse, "large amount of cocaine" EtOH abuse Brief Hospital Course Allergies Allergies Coded Allergies Type Severity Reaction Last Updated Verified No Known Drug Allergies 01/31/17 No Vital Signs Vital Signs Date Time Temp Pulse Resp B/P (MAP) Pulse Ox O2 Delivery O2 Flow Rate FiO2 08/30/18 08:32 91 164/104 08/30/18 07:45 97.8 18 97 Room Air 97.8 08/30/18 06:51 2.0 Lab Results Laboratory Tests Test 08/28/18 18:44 08/28/18 19:20 08/28/18 20:08 08/28/18 20:45 Urine Collection Type Unknown Urine Color Yellow Urine Clarity Clear Urine pH 5.5 Urine Specific [place] 1.010 Urine Protein Negative mg/dL (NEG-TRACE) Urine Glucose (UA) Negative mg/dL (NEG) Urine Ketones (Stick) Negative mg/dL (NEG) Urine Blood Small (NEG) Urine Nitrite Negative (NEG) Urine Bilirubin Negative (NEG) Urine Urobilinogen Dipstick 0.2 mg/dL (0.2 mg/dL) Urine Leukocyte Esterase Negative (NEG) Urine RBC 1-2 /HPF (0-2) Urine WBC 1-4 /HPF (0-4) Urine Squamous Epithelial Cells Few /LPF Urine Bacteria 0 /HPF (0-FEW) Urine Mucus Slight /LPF Urine Opiates Screen Neg (NEG) Urine Methadone Screen Neg (NEG) Urine Barbiturates Neg (NEG) Urine Phencyclidine Screen Neg (NEG) Urine Amphetamine/Methamphetamine Neg (NEG) Urine Benzodiazepines Screen Neg (NEG) Urine Cocaine Screen Pos (NEG) Urine Cannabinoids Screen Neg (NEG) Urine Ethyl Alcohol Pos (NEG) Sodium Level 139 mmol/L (136-145) Potassium Level 3.6 mmol/L (3.5-5.1) Chloride Level 101 mmol/L (98-107) Carbon Dioxide Level 28 mmol/L (21-32) Anion Gap 10 (6-14) Blood Urea Nitrogen 8 mg/dL (8-26) Creatinine 0.8 mg/dL (0.7-1.3) Estimated GFR (Cockcroft-Gault) 119.3 BUN/Creatinine Ratio 10 (6-20) Glucose Level 90 mg/dL (70-99) Calcium Level 9.1 mg/dL (8.5-10.1) Total Bilirubin 1.4 mg/dL (0.2-1.0) Aspartate Amino Transf (AST/SGOT) 34 U/L (15-37) Alanine Aminotransferase (ALT/SGPT) 18 U/L (16-63) Alkaline Phosphatase 72 U/L (46-116) Total Protein 7.9 g/dL (6.4-8.2) Albumin 3.8 g/dL (3.4-5.0) Albumin/Globulin Ratio 0.9 (1.0-1.7) Troponin I Quantitative < 0.017 ng/mL (0.000-0.055) Salicylates Level < 2.8 mg/dL (2.8-20.0) Salicylate Last Dose Date Unknown Salicylate Last Dose Time Unknown Acetaminophen Level < 2 mcg/ml (10-30) Acetaminophen Last Dose Date Unknown Acetaminophen Last Dose Time Unknown Ethyl Alcohol Level < 10 mg/dL (0-10) White Blood Count 8.5 x10^3/uL (4.0-11.0) Red Blood Count 4.75 x10^6/uL (4.30-5.70) Hemoglobin 14.7 g/dL (13.0-17.5) Hematocrit 43.5 % (39.0-53.0) Mean Corpuscular Volume 92 fL (79-100) Mean Corpuscular Hemoglobin 31 pg (25-35) Mean Corpuscular Hemoglobin Concent 34 g/dL (31-37) Red Cell Distribution Width 13.1 % (11.5-14.5) Platelet Count 247 x10^3/uL (140-400) Neutrophils (%) (Auto) 51 % (31-73) Lymphocytes (%) (Auto) 36 % (24-48) Monocytes (%) (Auto) 11 % (0-9) Eosinophils (%) (Auto) 1 % (0-3) Basophils (%) (Auto) 1 % (0-3) Neutrophils # (Auto) 4.3 x10^3uL (1.8-7.7) Lymphocytes # (Auto) 3.1 x10^3/uL (1.0-4.8) Monocytes # (Auto) 1.0 x10^3/uL (0.0-1.1) Eosinophils # (Auto) 0.1 x10^3/uL (0.0-0.7) Basophils # (Auto) 0.1 x10^3/uL (0.0-0.2) Test 08/29/18 03:30 Total Bilirubin 1.7 mg/dL (0.2-1.0) Direct Bilirubin 0.3 mg/dL (0.0-0.2) Aspartate Amino Transf (AST/SGOT) 27 U/L (15-37) Alanine Aminotransferase (ALT/SGPT) 15 U/L (16-63) Alkaline Phosphatase 66 U/L (46-116) Total Protein 6.8 g/dL (6.4-8.2) Albumin 3.2 g/dL (3.4-5.0) Brief Hospital Course Mr. Klein is a 58 old admti intox, cocaine and EtOH, some withdrawl and symptoms, treated aggressively, was lethargic on 08/29, complains of suicidal and plan to walk into traffic. DC to [facility] for crisis stabilization for SI medical problems are stable, suicidal plan seems due to circumstance as he feels his girlfriends behavior makes him want to kill himself Discharge Information Condition at Discharge: Improved Follow Up: Weeks Disposition/Orders: D/C to Another Facility Scheduled Albuterol Sulfate (Ventolin Hfa Inhaler) 18 Gm Hfa.aer.ad, 2 PUFF INH Q4HRS for FOR ASTHMA, #1 Ref 0 Prescribed by: ELLY LANCE DO on 05/13/18 0304 Last Action: Converted on 08/29/1810 by CASSIE HIGUERA Amlodipine Besylate (Amlodipine Besylate) 5 Mg Tablet, 2.5 MG PO DAILY for hypertension, #30 Prescribed by: LALY VAZQUEZ on 08/30/18 1204 Budesonide/Formoterol Fumarate (Symbicort 160-4.5 Mcg Inhaler) 10.2 Gm Hfa.aer.ad, 1 PUFF IH BID for 1 Days Prescribed by: TAURUS SMITH on 02/01/17 0903 Last Action: Converted on 08/29/1810 by CASSIE HIGUERA Doxycycline Hyclate (Doxycycline Hyclate) 100 Mg Tablet, 100 MG PO BID for copd for 7 Days, #14 Prescribed by: DONNY ESTRADA MD on 03/29/181119 Lisinopril (Lisinopril) 40 Mg Tablet, 40 MG PO DAILY for htn for 30 Days, #30 Prescribed by: DONNY ESTRADA MD on 03/29/181119 Last Action: Continued on 08/29/1810 by CASSIE HIGUERA Metformin Hcl (Metformin Hcl) 500 Mg Tablet, 500 MG PO DAILY for ANTI-DIABETIC, Ref 0 (Reported) Entered as Reported by: BIBIANA VENTURA on 09/13/172257 Prednisone (Prednisone) 20 Mg Tablet, 40 MG PO DAILY for copd, #20 Prescribed by: DONNY ESTRADA MD on 03/29/181119 Last Action: Continued on 08/29/1810 by CASSIE HIGUERA Prednisone (Prednisone) 50 Mg Tablet, 50 MG PO DAILY for 7 Days, #7 Prescribed by: ELLY LANCE DO on 05/13/18 0304 Tiotropium [place] (Spiriva) 18 Mcg Cap.w.dev, 1 CAP IH DAILY, #30 Ref 3 Prescribed by: TAURUS SMITH on 02/01/17 0903 Last Action: Converted on 08/29/1810 by CASSIE HIGUERA Scheduled PRN Hydrocodone/Apap 5-325 ([place] 5-325 Tablet) 1 Each Tablet, 1 TAB PO Q4-6HRS PRN for PAIN, #15 Prescribed by: DONNY ESTRADA MD on 03/29/181119 Last Action: Continued on 08/29/1810 by CASSIE HIGUERA Patient Instructions Patient Instructions > 30 min face to face and walked with him in lee LALY VAZQUEZ MD Aug 30, 2018 12:09
--- NOTE | 2018-08-30 14:25 | NUR ---
SW following pt. Pt seen by PAT team today and is accepted at [facility]. SW arranged transportation via [facility] at 1745. Pt aware of plans and agreeable. LAVERNE RED.
[2018-08-30 15:15] VITALS: BP 183/103
[2018-08-30 16:43] VITALS: BP 166/99
--- NOTE | 2018-08-30 18:21 | NUR ---
Discharge teaching provided written and verbal to pt,understanding verbalized.Dismissed to [facility] Crisis [facility] per ambulance at 1815 with all belongings.
[2018-09-13] MEDS ORDERED: VENTOLIN HFA18 GM INH (09:55)
[2018-09-13] MEDS ORDERED: HYDR-2769 PO (09:55)
== END 2018-08-30 18:15 | disposition short-term general hospital (02) | DRG 917 ==
LOC: ER 18:04 → 6 SOUTH 21:47
PROVIDERS: ADMIT Internal Medicine; ATTEND Internal Medicine
DX: T40.5X2A Poisoning by cocaine, intentional self-harm, initial encounter (principal); G92 Toxic encephalopathy; F20.0 Paranoid schizophrenia; F14.10 Cocaine abuse, uncomplicated; F10.10 Alcohol abuse, uncomplicated; F31.9 Bipolar disorder, unspecified; I50.9 Heart failure, unspecified; I11.0 Hypertensive heart disease with heart failure; F17.200 Nicotine dependence, unspecified, uncomplicated; M19.90 Unspecified osteoarthritis, unspecified site; F41.9 Anxiety disorder, unspecified; J44.9 Chronic obstructive pulmonary disease, unspecified; I25.10 Atherosclerotic heart disease of native coronary artery without angina pectoris; E11.9 Type 2 diabetes mellitus without complications; Y92.89 Other specified places as the place of occurrence of the external cause; Z82.49 Family history of ischemic heart disease and other diseases of the circulatory system; Z82.5 Family history of asthma and other chronic lower respiratory diseases
CPT/HCPCS: 36415; 80053; 80076; 80307; 80329; 81001; 84484; 85025; 93005; 94640; 94760; 96361; 96374; G0480; J2060; J7030; J7512; J7613; J7620; J7626; 99285-25

== ENCOUNTER 2018-09-12 21:58 | Inpatient (IN) | payer OTHER ==
[~2018-09-12] VITALS: Ht 162.6 cm; Wt 72.6 kg
[~2018-09-12 21:58] MED LIST changes: +AMLO5TAB10 PO
[2018-09-12] MEDS ORDERED: IV NORMAL SALINE 1000ML BAG 1,000 ML IV SCH (22:30)
[2018-09-12] MEDS ORDERED: IPRATRPIUM/ALBUTEROL 0.5/2.5MG 3 ML NEBU. NEB ONE (22:30)
[2018-09-12] MEDS ORDERED: methylPREDNISolone SOD SUCC PF 125 MG/2 ML VIAL. IV ONE (22:30)
[2018-09-12 22:35] LABS: BASO # 0.1 x10^3/uL (0.0-0.2); BASO % 1 % (0-3); EOS # 0.2 x10^3/uL (0.0-0.7); EOS % 2 % (0-3); HEMATOCRIT 39.4 % (39.0-53.0); HEMOGLOBIN 13.1 g/dL (13.0-17.5); LYMPH # 2.6 x10^3/uL (1.0-4.8); LYMPH % 24 % (24-48); MEAN CORPUSCULAR HEMOGLOBIN 31 pg (25-35); MEAN CORPUSCULAR HGB CONC 33 g/dL (31-37); MEAN CORPUSCULAR VOLUME 93 fL (79-100); MONO # 1.3 x10^3/uL (0.0-1.1); MONO % 12 % (0-9); NEUT # 6.6 x10^3uL (1.8-7.7); NEUT % 62 % (31-73); PLATELET COUNT 290 x10^3/uL (140-400); RED BLOOD COUNT 4.24 x10^6/uL (4.30-5.70); RED CELL DISTRIBUTION WIDTH 13.2 % (11.5-14.5); WHITE BLOOD COUNT 10.7 x10^3/uL (4.0-11.0)
[2018-09-12 22:46] LABS: CALCIUM 9.1 mg/dL (8.5-10.1); CREATININE 1.1 mg/dL (0.7-1.3); GFR 82.6; POTASSIUM 3.4 mmol/L (3.5-5.1)
[2018-09-12 22:52] LABS: ALBUMIN 3.4 g/dL (3.4-5.0); ALBUMIN/GLOBULIN RATIO 0.8 (1.0-1.7); TOTAL BILIRUBIN 0.3 mg/dL (0.2-1.0); TOTAL PROTEIN 7.8 g/dL (6.4-8.2)
--- NOTE | 2018-09-12 22:58 | RAD ---
EXAM: Chest, single view. HISTORY: Short of breath. Chest pain. COMPARISON: 07/16/2018. FINDINGS: A frontal view of the chest is obtained. There is stable linear scarring within the right midlung or trace fluid along the right minor fissure. There is stable blunting of the right costophrenic angle likely due to pleural parenchymal scarring. There is stable radiodense foreign bodies overlying the superior right thorax due to prior penetrating injury. There are healed rib fractures. The heart is normal in size. There is internal fixation of a healed left femoral fracture. IMPRESSION: Stable right mid thorax and basilar pleural parenchymal scarring and evidence of prior right thoracic penetrating injury. No acute pulmonary finding. Electronically signed by: Starla Dos Santos MD (09/12/2018 10:55 PM) [facility]
[2018-09-12] MEDS ORDERED: ALBUTEROL SULFATE 2.5 MG/3 ML NEBU. CONT NEB ONE (23:30)
[2018-09-12] MEDS ORDERED: cefTRIAXone IV Push 1 GM VIAL. IVP ONE (23:45)
[2018-09-12] MEDS ORDERED: AZITHRMYCN 500MG IVPB FOR OMNI 250 ML IV ONE (23:45)
[2018-09-12] MEDS ORDERED: fentaNYL PF VIAL 100 MCG/2 ML VIAL IV ONE (23:45)
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
[2018-09-13] MEDS ORDERED: HYDR-2763 PO (00:44)
[2018-09-13] MEDS: guaiFENesin/CODEINE 100mg/10mg 5 ML LIQUID PO PRN ×2 (02:11→08:20)
[2018-09-13] MEDS: fentaNYL PF VIAL 100 MCG/2 ML VIAL IV PRN ×3 (02:11→08:21)
[2018-09-13] MEDS ORDERED: methylPREDNISolone SOD SUCC PF 125 MG/2 ML VIAL. IV SCH (06:00)
--- NOTE | 2018-09-13 07:24 | EKG ---
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
[2018-09-13 07:58] VITALS: BP 173/111
[2018-09-13] MEDS ORDERED: IPRATRPIUM/ALBUTEROL 0.5/2.5MG 3 ML NEBU. NEB SCH ×2 (08:00)
[2018-09-13] MEDS ORDERED: INSULIN LISPRO 300 UNITS/3 ML INSULN.PEN. SQ SCH (08:00)
[2018-09-13] MEDS ORDERED: metFORMIN 500 MG TABLET PO SCH (08:00)
[2018-09-13] MEDS ORDERED: DEXTROSE 50% 25 GM / 50ML DISP.SYRIN. IV PRN (08:00)
[2018-09-13 08:22] VITALS: BP 173/111
[2018-09-13] MEDS ORDERED: amLODIPine BESYLATE 5 MG TABLET PO SCH (09:00)
[2018-09-13] MEDS ORDERED: LISINOPRIL 20 MG TABLET PO SCH (09:00)
[2018-09-13] MEDS ORDERED: NON FORMULARY ITEM (Tiotropium Bromide (Spiriva) 1 CAP) IH SCH (09:00)
[2018-09-13] MEDS ORDERED: BUDESONIDE 0.5 MG/2 ML NEBU. NEB SCH (09:00)
[2018-09-13] MEDS ORDERED: HYDR-2769 PO (09:55)
[2018-09-13] MEDS ORDERED: VENTOLIN HFA18 GM INH (09:55)
--- NOTE | 2018-09-13 10:01 | PDOC1 ---
History and Physical Date of Admission Date of Admission DATE: 09/13/18 TIME: 09:58 Identification/Chief Complaint Chief Complaint Cough, SOA, maybe ran out of pro air Source Source: Caregiver, Chart review, Patient History of Present Illness History of Present Illness 58-year-old -[place] male history of COPD on Spiriva Advair, maybe ran out of pro air. 3 day history of URI symptoms. No recent travel or sick contacts. No fever no white count or chest x-ray is negative. But was very wheezy on ER arrival hence admitted overnight. Feeling much better. Got steroid shot at ER. K 3.4 and will replace 401. He is ambulating about the no increase in SOA. He requests some hydrocodone 10 refills upon discharge today. Smokes and stopped maybe 2-4 days ago. Apparently was anxious upon ER arrival Past Medical History Cardiovascular: CAD, CHF, HTN Pulmonary: Bronchitis, COPD CENTRAL NERVOUS SYSTEM: Other GI: No pertinent hx, Other Heme/Onc: No pertinent hx Hepatobiliary: No pertinent hx Psych: Anxiety, Addictions, Bipolar, Psychosis Musculoskeletal: Osteoarthritis Infectious disease: No pertinent hx Renal/: No pertinent hx Endocrine: Diabetes Past Surgical History Past Surgical History: Hernia Repair, Other Family History Family History: Chronic Bronchitis, Coronary Artery Disease Social History Smoke: <1 pack per day ALCOHOL: none Drugs: Cocaine, Marijuana Current Problem List Problem List Problems Medical Problems: (1) Anxiety Status: Acute (2) Hypokalemia Status: Acute (3) Musculoskeletal chest pain Status: Acute Current Medications Current Medications Current Medications Sodium Chloride 1,000 ml @ 1,000 mls/hr Q1H IV Last administered on 09/12/18at 22:28; Start 09/12/18 at 22:30; Stop 09/12/18 at 23:29; Status DC Albuterol/ Ipratropium (Duoneb) 3 ml 1X ONCE NEB Last administered on 09/12/18at 22:19; Start 09/12/18 at 22:30; Stop 09/12/18 at 22:31; Status DC Methylprednisolone Sodium Succinate (SOLU-Medrol 125MG VIAL) 125 mg 1X ONCE IV Last administered on 09/12/18at 22:29; Start 09/12/18 at 22:30; Stop 09/12/18 at 22:31; Status DC Albuterol Sulfate (Ventolin Neb Soln) 10 mg 1X ONCE CONT NEB Last administered on 09/12/18 23:25; Start 09/12/18 at 23:30; Stop 09/12/18 at 23:31; Status DC Lorazepam (Ativan) 1 mg 1X ONCE IV Last administered on 09/12/18at 23:43; Start 09/12/18 at 23:30; Stop 09/12/18 at 23:31; Status DC Fentanyl Citrate (Fentanyl 2ml Vial) 50 mcg 1X ONCE IV Last administered on 09/12/18 23:43; Start 09/12/18 at 23:45; Stop 09/12/18 at 23:46; Status DC Ceftriaxone Sodium (Rocephin) 1 gm 1X ONCE IVP Last administered on 09/12/18 23:44; Start 09/12/18 at 23:45; Stop 09/12/18 at 23:46; Status DC Azithromycin 250 ml @ 250 mls/hr 1X ONCE IV Last administered on 09/12/18 23:45; Start 09/12/18 at 23:45; Stop 09/13/18 at 00:44; Status DC Methylprednisolone Sodium Succinate (SOLU-Medrol 125MG VIAL) 125 mg Q8HRS IV Last administered on 09/13/18at 05:47; Start 09/13/18 at 06:00; Stop 09/13/18 at 06:01; Status DC Albuterol/ Ipratropium (Duoneb) 3 ml Q4HRS NEB ; Start 09/13/18 at 00:00; Stop 09/13/18 at 04:01; Status DC Fentanyl Citrate (Fentanyl 2ml Vial) 50 mcg PRN Q2HR PRN IV SEVERE PAIN Last administered on 09/13/18 08:21; Start 09/13/18 at 02:00 Guaifenesin/ Codeine Phosphate (Robitussin Ac) 5 ml PRN QID PRN PO COUGH 1ST CHOICE Last administered on 09/13/18 08:20; Start 09/13/18 at 02:00 Albuterol/ Ipratropium (Duoneb) 3 ml RTQID NEB Last administered on 09/13/18at 07:43; Start 09/13/18 at 08:00 Amlodipine Besylate (Norvasc) 2.5 mg DAILY PO Last administered on 5/9/19at 08:22; Start 09/13/18 at 09:00 Acetaminophen/ Hydrocodone Bitart (Lortab 7.5/325) 1 tab Q8HRS PO ; Start 09/13/18 at 14:00 Lisinopril (Prinivil) 40 mg DAILY PO Last administered on 09/13/18at 08:21; Start 09/13/18 at 09:00 Albuterol Sulfate (Ventolin Neb Soln) 2.5 mg Q4HRS@0000,0400 NEB ; Start 09/14/18 at 00:00 Budesonide (Pulmicort) 0.5 mg RTBID NEB ; Start 09/13/18 at 09:00 Metformin HCl (Glucophage) 500 mg DAILY08 PO Last administered on 09/13/18at 08:20; Start 09/13/18 at 08:00 Non-Formulary Medication (Tiotropium Combs (Spiriva)) 1 cap DAILY IH ; Start 09/13/18 at 09:00; Status UNV Insulin Human Lispro (HumaLOG) 0-9 UNITS TIDWMEALS SQ Last administered on 09/13/18at 08:28; Start 09/13/18 at 08:00 Dextrose (Dextrose 50%-Water Syringe) 12.5 gm PRN Q15MIN PRN IV SEE COMMENTS; Start 09/13/18 at 08:00 Potassium Chloride (Klor-Con) 40 meq 1X ONCE PO ; Start 09/13/18 at 10:00; Stop 09/13/18 at 10:01; Status UNV Active Scripts Active Hydrocodone-Apap 10-325 (Hydrocodone Bit/Acetaminophen) 1 Tab Tablet 1 Tab PO PRN Q6HRS PRN Ventolin Hfa Inhaler (Albuterol Sulfate) 18 Gm Hfa.aer.ad 2 Puff INH Q4HRS MDD 1 Amlodipine Besylate 5 Mg Tablet 2.5 Mg PO DAILY Lisinopril 40 Mg Tablet 40 Mg PO DAILY 30 Days Spiriva (Tiotropium Combs) 18 Mcg Cap.w.dev 1 Cap IH DAILY Symbicort 160-4.5 Mcg Inhaler (Budesonide/Formoterol Fumarate) 10.2 Gm Hfa.aer.ad 1 Puff IH BID 1 Days Reported Hydrocodone-Acetamin 7.5-325 (Hydrocodone/Acetaminophen) 1 Each Tablet 7.5 Mg PO Q8HRS Metformin Hcl 500 Mg Tablet 500 Mg PO DAILY Allergies Allergies: Coded Allergies: No Known Drug Allergies (Unverified , 01/31/17) ROS Review of System As per history of present illness, the rest of ROS 14 point negative Physical Exam General: Alert, Oriented X3, Cooperative, No acute distress HEENT: Atraumatic, PERRLA Lungs: Normal air movement, Other (decreased breath sounds but symmetrical chest expansion and no wheezing) Cardiovascular: S1, S2 Abdomen: Normal bowel sounds, Soft, No tenderness, No hepatosplenomegaly, No masses Male Genitals Exam: normal genitalia, normal prostate Rectal Exam: not examined Extremities: No clubbing, No cyanosis, No edema, Normal pulses, No tenderness/swelling Skin: No rashes, No breakdown, No significant lesion Neuro: Normal gait, Normal speech, Strength at 5/5 X4 ext, Normal tone, Sensation intact, Cranial nerves 3-12 NL, Reflexes 2+ Psych/Mental Status: Mental status NL, Mood NL Vitals Vitals Vital Signs Date Time Temp Pulse Resp B/P (MAP) Pulse Ox O2 Delivery O2 Flow Rate FiO2 09/13/18 08:22 112 173/111 09/13/18 08:21 18 95 Room Air 09/13/18 07:58 98.2 98.2 09/13/18 04:46 2.0 Labs Labs Laboratory Tests Test 09/12/18 22:20 White Blood Count 10.7 x10^3/uL (4.0-11.0) Red Blood Count 4.24 x10^6/uL (4.30-5.70) Hemoglobin 13.1 g/dL (13.0-17.5) Hematocrit 39.4 % (39.0-53.0) Mean Corpuscular Volume 93 fL (79-100) Mean Corpuscular Hemoglobin 31 pg (25-35) Mean Corpuscular Hemoglobin Concent 33 g/dL (31-37) Red Cell Distribution Width 13.2 % (11.5-14.5) Platelet Count 290 x10^3/uL (140-400) Neutrophils (%) (Auto) 62 % (31-73) Lymphocytes (%) (Auto) 24 % (24-48) Monocytes (%) (Auto) 12 % (0-9) Eosinophils (%) (Auto) 2 % (0-3) Basophils (%) (Auto) 1 % (0-3) Neutrophils # (Auto) 6.6 x10^3uL (1.8-7.7) Lymphocytes # (Auto) 2.6 x10^3/uL (1.0-4.8) Monocytes # (Auto) 1.3 x10^3/uL (0.0-1.1) Eosinophils # (Auto) 0.2 x10^3/uL (0.0-0.7) Basophils # (Auto) 0.1 x10^3/uL (0.0-0.2) Sodium Level 143 mmol/L (136-145) Potassium Level 3.4 mmol/L (3.5-5.1) Chloride Level 106 mmol/L (98-107) Carbon Dioxide Level 28 mmol/L (21-32) Anion Gap 9 (6-14) Blood Urea Nitrogen 9 mg/dL (8-26) Creatinine 1.1 mg/dL (0.7-1.3) Estimated GFR (Cockcroft-Gault) 82.6 BUN/Creatinine Ratio 8 (6-20) Glucose Level 135 mg/dL (70-99) Lactic Acid Level 1.5 mmol/L (0.4-2.0) Calcium Level 9.1 mg/dL (8.5-10.1) Total Bilirubin 0.3 mg/dL (0.2-1.0) Aspartate Amino Transf (AST/SGOT) 18 U/L (15-37) Alanine Aminotransferase (ALT/SGPT) 24 U/L (16-63) Alkaline Phosphatase 82 U/L (46-116) Creatine Kinase 475 U/L (39-308) Troponin I Quantitative < 0.017 ng/mL (0.000-0.055) BB-Mwx-[id number]-Type Natriuretic Peptide 40 pg/mL (0-124) Total Protein 7.8 g/dL (6.4-8.2) Albumin 3.4 g/dL (3.4-5.0) Albumin/Globulin Ratio 0.8 (1.0-1.7) Laboratory Tests Test 09/12/18 22:20 White Blood Count 10.7 x10^3/uL (4.0-11.0) Red Blood Count 4.24 x10^6/uL (4.30-5.70) Hemoglobin 13.1 g/dL (13.0-17.5) Hematocrit 39.4 % (39.0-53.0) Mean Corpuscular Volume 93 fL (79-100) Mean Corpuscular Hemoglobin 31 pg (25-35) Mean Corpuscular Hemoglobin Concent 33 g/dL (31-37) Red Cell Distribution Width 13.2 % (11.5-14.5) Platelet Count 290 x10^3/uL (140-400) Neutrophils (%) (Auto) 62 % (31-73) Lymphocytes (%) (Auto) 24 % (24-48) Monocytes (%) (Auto) 12 % (0-9) Eosinophils (%) (Auto) 2 % (0-3) Basophils (%) (Auto) 1 % (0-3) Neutrophils # (Auto) 6.6 x10^3uL (1.8-7.7) Lymphocytes # (Auto) 2.6 x10^3/uL (1.0-4.8) Monocytes # (Auto) 1.3 x10^3/uL (0.0-1.1) Eosinophils # (Auto) 0.2 x10^3/uL (0.0-0.7) Basophils # (Auto) 0.1 x10^3/uL (0.0-0.2) Sodium Level 143 mmol/L (136-145) Potassium Level 3.4 mmol/L (3.5-5.1) Chloride Level 106 mmol/L (98-107) Carbon Dioxide Level 28 mmol/L (21-32) Anion Gap 9 (6-14) Blood Urea Nitrogen 9 mg/dL (8-26) Creatinine 1.1 mg/dL (0.7-1.3) Estimated GFR (Cockcroft-Gault) 82.6 BUN/Creatinine Ratio 8 (6-20) Glucose Level 135 mg/dL (70-99) Lactic Acid Level 1.5 mmol/L (0.4-2.0) Calcium Level 9.1 mg/dL (8.5-10.1) Total Bilirubin 0.3 mg/dL (0.2-1.0) Aspartate Amino Transf (AST/SGOT) 18 U/L (15-37) Alanine Aminotransferase (ALT/SGPT) 24 U/L (16-63) Alkaline Phosphatase 82 U/L (46-116) Creatine Kinase 475 U/L (39-308) Troponin I Quantitative < 0.017 ng/mL (0.000-0.055) BY-Rui-K-Type Natriuretic Peptide 40 pg/mL (0-124) Total Protein 7.8 g/dL (6.4-8.2) Albumin 3.4 g/dL (3.4-5.0) Albumin/Globulin Ratio 0.8 (1.0-1.7) VTE Prophylaxis Ordered VTE Prophylaxis Devices: Yes VTE Pharmacological Prophylaxi: Yes Assessment/Plan Assessment/Plan Acute bronchitis, COPD exacerbation Smoker NO CAp on CXR CAD, hypertension GERD, anxiety NOS-chronic stable Plan home today, pro-air, steroid, Z-Ryan all on chart Requests some hydrocodone refills and I provided 20 pills TAURUS SMITH MD September 13, 2018 10:01
--- NOTE | 2018-09-13 10:02 | PDOC3 ---
Discharge Summary Visit Information Date of Admission: September 12, 2018 Date of Discharge: September 13, 2018 Admitting Diagnosis Comment: Acute bronchitis, COPD exacerbation, no pneumonia x-ray Smoker Anxiety NOS, hypertension GERD-chronic stable Final Diagnosis Problems Medical Problems: (1) Anxiety Status: Acute (2) Hypokalemia Status: Acute (3) Musculoskeletal chest pain Status: Acute Brief Hospital Course Allergies Allergies Coded Allergies Type Severity Reaction Last Updated Verified No Known Drug Allergies 01/31/17 No Vital Signs Vital Signs Date Time Temp Pulse Resp B/P (MAP) Pulse Ox O2 Delivery O2 Flow Rate FiO2 09/13/18 08:22 112 173/111 09/13/18 08:21 18 95 Room Air 09/13/18 07:58 98.2 98.2 09/13/18 04:46 2.0 Lab Results Laboratory Tests Test 09/12/18 22:20 White Blood Count 10.7 x10^3/uL (4.0-11.0) Red Blood Count 4.24 x10^6/uL (4.30-5.70) Hemoglobin 13.1 g/dL (13.0-17.5) Hematocrit 39.4 % (39.0-53.0) Mean Corpuscular Volume 93 fL (79-100) Mean Corpuscular Hemoglobin 31 pg (25-35) Mean Corpuscular Hemoglobin Concent 33 g/dL (31-37) Red Cell Distribution Width 13.2 % (11.5-14.5) Platelet Count 290 x10^3/uL (140-400) Neutrophils (%) (Auto) 62 % (31-73) Lymphocytes (%) (Auto) 24 % (24-48) Monocytes (%) (Auto) 12 % (0-9) Eosinophils (%) (Auto) 2 % (0-3) Basophils (%) (Auto) 1 % (0-3) Neutrophils # (Auto) 6.6 x10^3uL (1.8-7.7) Lymphocytes # (Auto) 2.6 x10^3/uL (1.0-4.8) Monocytes # (Auto) 1.3 x10^3/uL (0.0-1.1) Eosinophils # (Auto) 0.2 x10^3/uL (0.0-0.7) Basophils # (Auto) 0.1 x10^3/uL (0.0-0.2) Sodium Level 143 mmol/L (136-145) Potassium Level 3.4 mmol/L (3.5-5.1) Chloride Level 106 mmol/L (98-107) Carbon Dioxide Level 28 mmol/L (21-32) Anion Gap 9 (6-14) Blood Urea Nitrogen 9 mg/dL (8-26) Creatinine 1.1 mg/dL (0.7-1.3) Estimated GFR (Cockcroft-Gault) 82.6 BUN/Creatinine Ratio 8 (6-20) Glucose Level 135 mg/dL (70-99) Lactic Acid Level 1.5 mmol/L (0.4-2.0) Calcium Level 9.1 mg/dL (8.5-10.1) Total Bilirubin 0.3 mg/dL (0.2-1.0) Aspartate Amino Transf (AST/SGOT) 18 U/L (15-37) Alanine Aminotransferase (ALT/SGPT) 24 U/L (16-63) Alkaline Phosphatase 82 U/L (46-116) Creatine Kinase 475 U/L (39-308) Troponin I Quantitative < 0.017 ng/mL (0.000-0.055) TY-Sgn-G-Type Natriuretic Peptide 40 pg/mL (0-124) Total Protein 7.8 g/dL (6.4-8.2) Albumin 3.4 g/dL (3.4-5.0) Albumin/Globulin Ratio 0.8 (1.0-1.7) Laboratory Tests Test 09/12/18 22:20 White Blood Count 10.7 x10^3/uL (4.0-11.0) Red Blood Count 4.24 x10^6/uL (4.30-5.70) Hemoglobin 13.1 g/dL (13.0-17.5) Hematocrit 39.4 % (39.0-53.0) Mean Corpuscular Volume 93 fL (79-100) Mean Corpuscular Hemoglobin 31 pg (25-35) Mean Corpuscular Hemoglobin Concent 33 g/dL (31-37) Red Cell Distribution Width 13.2 % (11.5-14.5) Platelet Count 290 x10^3/uL (140-400) Neutrophils (%) (Auto) 62 % (31-73) Lymphocytes (%) (Auto) 24 % (24-48) Monocytes (%) (Auto) 12 % (0-9) Eosinophils (%) (Auto) 2 % (0-3) Basophils (%) (Auto) 1 % (0-3) Neutrophils # (Auto) 6.6 x10^3uL (1.8-7.7) Lymphocytes # (Auto) 2.6 x10^3/uL (1.0-4.8) Monocytes # (Auto) 1.3 x10^3/uL (0.0-1.1) Eosinophils # (Auto) 0.2 x10^3/uL (0.0-0.7) Basophils # (Auto) 0.1 x10^3/uL (0.0-0.2) Sodium Level 143 mmol/L (136-145) Potassium Level 3.4 mmol/L (3.5-5.1) Chloride Level 106 mmol/L (98-107) Carbon Dioxide Level 28 mmol/L (21-32) Anion Gap 9 (6-14) Blood Urea Nitrogen 9 mg/dL (8-26) Creatinine 1.1 mg/dL (0.7-1.3) Estimated GFR (Cockcroft-Gault) 82.6 BUN/Creatinine Ratio 8 (6-20) Glucose Level 135 mg/dL (70-99) Lactic Acid Level 1.5 mmol/L (0.4-2.0) Calcium Level 9.1 mg/dL (8.5-10.1) Total Bilirubin 0.3 mg/dL (0.2-1.0) Aspartate Amino Transf (AST/SGOT) 18 U/L (15-37) Alanine Aminotransferase (ALT/SGPT) 24 U/L (16-63) Alkaline Phosphatase 82 U/L (46-116) Creatine Kinase 475 U/L (39-308) Troponin I Quantitative < 0.017 ng/mL (0.000-0.055) XX-Qpq-B-Type Natriuretic Peptide 40 pg/mL (0-124) Total Protein 7.8 g/dL (6.4-8.2) Albumin 3.4 g/dL (3.4-5.0) Albumin/Globulin Ratio 0.8 (1.0-1.7) Brief Hospital Course Mr. Klein is a 58 old [sex] who presented with [ ] 58-year-old -[place] male history of COPD on Spiriva Advair, maybe ran out of pro air. 3 day history of URI symptoms. No recent travel or sick contacts. No fever no white count or chest x-ray is negative. But was very wheezy on ER arrival hence admitted overnight. Feeling much better. Got steroid shot at ER. K 3.4 and will replace 401. He is ambulating about the no increase in SOA. He requests some hydrocodone 10 refills upon discharge today. Smokes and stopped maybe 2-4 days ago. Apparently was anxious upon ER arrival Course: home today, did well overnight Discharge Information Condition at Discharge: Improved, Stable Follow Up: Weeks (pcp if no better) Disposition/Orders: D/C to Home Scheduled Albuterol Sulfate (Ventolin Hfa Inhaler) 18 Gm Hfa.aer.ad, 2 PUFF INH Q4HRS for FOR ASTHMA MDD 1, #1 Ref 0 Prescribed by: TAURUS SMITH on 09/13/18954 Amlodipine Besylate (Amlodipine Besylate) 5 Mg Tablet, 2.5 MG PO DAILY for hypertension, #30 Prescribed by: LALY VAZQUEZ on 08/30/18 1204 Last Action: Continued on 09/13/18748 by TAURUS SMITH Budesonide/Formoterol Fumarate (Symbicort 160-4.5 Mcg Inhaler) 10.2 Gm Hfa.aer.ad, 1 PUFF IH BID for 1 Days Prescribed by: TAURUS SMITH on 02/01/17 0903 Last Action: Converted on 09/13/18748 by TAURUS SMITH Hydrocodone/Acetaminophen (Hydrocodone-Acetamin 7.5-325) 1 Each Tablet, 7.5 MG PO Q8HRS for pain, (Reported) Entered as Reported by: MARINA KNIGHT RN on 09/13/18 0044 Last Taken: Unknown Dose on Unknown Date & Time Last Action: Continued on 09/13/18748 by TAURUS SMITH Lisinopril (Lisinopril) 40 Mg Tablet, 40 MG PO DAILY for htn for 30 Days, #30 Prescribed by: DONNY ESTRADA MD on 03/29/18 1120 Last Action: Continued on 09/13/18748 by TAURUS SMITH Metformin Hcl (Metformin Hcl) 500 Mg Tablet, 500 MG PO DAILY for ANTI-DIABETIC, Ref 0 (Reported) Entered as Reported by: BIBIANA VENTURA on 09/13/172257 Last Action: Converted on 09/13/18748 by TAURUS SMITH Tiotropium Chandler (Spiriva) 18 Mcg Cap.w.dev, 1 CAP IH DAILY, #30 Ref 3 Prescribed by: TAURUS SMITH on 02/01/17 0903 Last Action: Converted on 09/13/18748 by TAURUS SMITH Scheduled PRN Hydrocodone Bit/Acetaminophen (Hydrocodone-Apap 10-325 ) 1 Tab Tablet, 1 TAB PO PRN Q6HRS PRN for PAIN, #20 Ref 0 Prescribed by: TAURUS SMITH on 09/13/1855 TAURUS SMITH MD September 13, 2018 10:02
[2018-09-13] MEDS ORDERED: POTASSIUM CHLORIDE 20 MEQ TABLET.ER. PO ONE (10:30)
--- NOTE | 2018-09-13 10:30 | NUR ---
Discharge Note: [facility] Discharge instructions and discharge home medications reviewed with Patient and a copy given. All questions have been answered and understanding verbalized. The following instructions and handouts were given: COPD, acute bronchitis. Discontinued lines and drains: peripheral IV line discontinued, no bleeding or bruising, catheter tip intact. Patient discharged to home for self-care, scripts given.
[2018-09-13] MEDS ORDERED: HYDROcodone/APAP 7.5/325MG 1 TAB TABLET PO SCH (14:00)
[2018-09-14] MEDS ORDERED: ALBUTEROL SULFATE 2.5 MG/3 ML NEBU. NEB SCH
== END 2018-09-13 10:30 | disposition home or self-care (01) | DRG 192 ==
LOC: ER 21:58 → 6 SOUTH 22:30
PROVIDERS: ADMIT Internal Medicine; ATTEND Internal Medicine
DX: J44.0 Chronic obstructive pulmonary disease with (acute) lower respiratory infection (principal); J20.9 Acute bronchitis, unspecified; J44.1 Chronic obstructive pulmonary disease with (acute) exacerbation; I11.0 Hypertensive heart disease with heart failure; I50.9 Heart failure, unspecified; F17.210 Nicotine dependence, cigarettes, uncomplicated; F41.9 Anxiety disorder, unspecified; E87.6 Hypokalemia; I25.10 Atherosclerotic heart disease of native coronary artery without angina pectoris; K21.9 Gastro-esophageal reflux disease without esophagitis; E11.9 Type 2 diabetes mellitus without complications; F29 Unspecified psychosis not due to a substance or known physiological condition; M19.90 Unspecified osteoarthritis, unspecified site; Z82.5 Family history of asthma and other chronic lower respiratory diseases; Z82.49 Family history of ischemic heart disease and other diseases of the circulatory system
CPT/HCPCS: 36415; 71045; 80053; 82550; 83605; 83880; 84484; 85025; 87040; 93005; 94640; 94644; 96361; 96365; 96375; 99291; J0456; J0696; J1815; J2060; J2930; J3010; J7030; J7613; J7620

== ENCOUNTER 2018-11-20 21:36 | Emergency (ER) | payer OTHER ==
[~2018-11-20] VITALS: Ht 162.6 cm; Wt 69.4 kg
[~2018-11-20 21:36] MED LIST changes: +HYDR-2763 PO; +HYDR-2769 PO
[2018-11-20 22:00] VITALS: BP 171/99
[2018-11-20] MEDS ORDERED: ORPHENADRINE CITRATE 60 MG/2 ML VIAL. IM ONE (23:00)
[2018-11-20] MEDS ORDERED: ORPHENADRINE CITRATE 60 MG/2 ML VIAL. ONE (23:00)
[2018-11-20] MEDS ORDERED: ORPH100T PO (23:03)
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
== END 2018-11-20 23:14 | disposition home or self-care (01) ==
LOC: ER 21:36
DX: M79.605 Pain in left leg (principal); J44.9 Chronic obstructive pulmonary disease, unspecified; I50.9 Heart failure, unspecified
CPT/HCPCS: 96372; 99284; J2360

== ENCOUNTER 2019-02-21 14:40 | Emergency (ER) | payer OTHER ==
[~2019-02-21 14:40] MED LIST changes: +ORPH100T PO
== END 2019-02-21 16:00 | disposition left against medical advice (07) ==
LOC: ER 14:40
DX: S69.90XA Unspecified injury of unspecified wrist, hand and finger(s), initial encounter (principal); Z53.21 Procedure and treatment not carried out due to patient leaving prior to being seen by health care provider; X58.XXXA Exposure to other specified factors, initial encounter; Y93.89 Activity, other specified; Y92.89 Other specified places as the place of occurrence of the external cause; Y99.8 Other external cause status